=== PATIENT | female | born 1945 | race Caucasian/White ===

== ENCOUNTER 2017-03-29 22:43 | Observation (INO) ==
[2017-03-29 23:13] LABS: Basophils % 0.4 %; Eosinophils # 0.2 K/mcL (0.0-0.6); Eosinophils % 1.3 %; Hematocrit 38.8 % (35.3-44.9); Hemoglobin 12.5 g/dL (11.5-15.4); Immature Granulocytes % 0.4 % (0-4); Lymphocytes # 3.1 K/mcL (0.6-4.6); Lymphocytes % 27.4 %; Mean Corpuscular HGB Conc 32.2 g/dL (31.6-35.5); Mean Corpuscular Hemoglobin 27.4 pg (28.0-33.3); Mean Corpuscular Volume 85.1 fL (83.0-100.0); Mean Platelet Volume 9.7 fL (9.4-12.4); Monocytes % 8.4 %; Neutrophils # 7.1 K/mcL (1.6-8.9); Platelet Count 240 K/mcL (140-400); Red Blood Count 4.56 M/mcL (3.82-4.97); Red Cell Distribution Width 14.7 % (11.5-14.5); Segmented Neutrophils % 62.1 %
[2017-03-29 23:20] LABS: INR 1.2; Prothrombin Time 12.5 Seconds (9.4-12.1)
[2017-03-29 23:22] LABS: Activated Partial Thrombo Time 28.7 Seconds (26.0-36.0)
[2017-03-29 23:28] LABS: BUN/Creatinine Ratio 24 (6-26); Blood Urea Nitrogen 21 mg/dL (7-20); Calcium 9.6 mg/dL (8.6-10.8); Carbon Dioxide 29 mEq/L (19-29); Chloride 106 mEq/L (98-109); Glucose 86 mg/dL (70-99); Osmolality,Calculated 294 (280-300); Potassium 4.6 mEq/L (3.5-4.5); Sodium 141 mEq/L (136-145); eGFR For African Americans > 60 (> 60); eGFR For Non-African Americans > 60 (> 60)
--- NOTE | 2017-03-30 00:24 | Emergency Department Note ---
Disposition Clinical Impression: Chest pain, rule out acute myocardial infarction Disposition: Admitted As Inpatient Condition: Good Time of Disposition: 04:00 Chest Pain HPI - General Chief Complaint: ED Chest Pain Stated Complaint: CP Time Seen by Provider: 03/30/17 00:06 Source: patient Limitations: no limitations Vital Signs Reviewed: Yes Nursing Notes Reviewed: Yes - History of Present Illness HPI Narrative: 71-year-old female presents with concerns of chest pain. Patient states the pain started about 2 hours prior to arrival. She describes it as a pressure in her left chest that radiates to her left shoulder and down her left arm. Patient states that this feels similar to her previous heart attacks. Patient has had multiple stents placed as well as a three-vessel bypass placed. Patient takes aspirin daily but does not take Plavix or other anticoagulant medication. Patient reports associated nausea, shortness of breath but denies diaphoresis or palpitations. Patient denies recent trauma. Severity scale (1-10): 8 - Related Data Home Medications Medication Instructions Recorded Confirmed Alendronate Sodium [Fosamax] 70 mg PO QWEEK 03/30/17 03/30/17 Aspirin [Ecotrin] 325 mg PO DAILY 03/30/17 03/30/17 Atenolol [Tenormin] 25 mg PO DAILY 03/30/17 03/30/17 Atorvastatin [Lipitor] 40 mg PO HS 03/30/17 03/30/17 Citalopram [CeleXA] 40 mg PO DAILY 03/30/17 03/30/17 Diltiazem HCl [Diltiazem ER] 120 mg PO BID 03/30/17 03/30/17 Fenofibrate,Micronized [Lofibra] 200 mg PO DAILY 03/30/17 03/30/17 Furosemide [Lasix] 40 mg PO DAILY 03/30/17 03/30/17 Isosorbide MONOnitrate (24 HR) 30 mg PO DAILY 03/30/17 03/30/17 [Imdur] Levothyroxine [Synthroid] 125 mcg PO DAILY 03/30/17 03/30/17 Methylphenidate HCl [Ritalin] 10 mg PO TID 03/30/17 03/30/17 Nitroglycerin [Nitrostat] 0.4 mg SL PRN PRN 03/30/17 03/30/17 Omeprazole 40 mg PO DAILY 03/30/17 03/30/17 Potassium Chloride [Klor-Con 10] 10 meq PO TID 03/30/17 03/30/17 Ropinirole HCl [Requip] 2 mg PO DAILY 03/30/17 03/30/17 TraZODone 50 mg PO HS 03/30/17 03/30/17 Allergies Allergy/AdvReac Type Severity Reaction Status Date / Time Penicillins Allergy Rash Verified 03/29/17 22:54 adhesive tape AdvReac Blister Verified 03/29/17 22:54 All systems ED: reviewed and negative except as stated. Constitutional: Denies: fever, chills, weakness Cardiovascular: Reports: chest pain, palpitations Chest Pain PMH - Past Medical History Medical history: Reports: coronary artery disease, hyperlipidemia - Social History Smoking Status: Never smoker Alcohol use: Reports: none Drug use: Reports: none Physical Exam General: Alert and in no acute distress Skin: Warm, dry, intact Head: Normocephalic and atraumatic Neck: Supple, trachea midline and no tenderness Cardiovascular: RRR, no murmur, normal perfusion Respiratory: CTAB, no wheezing, cough, or respiratory distress Musculoskeletal: Normal strength, no tenderness, swelling or deformity GI: Soft, nontender, nondistended. Bowel sounds present Neuro: A&O to person, place, time and situation. No focal deficits noted on exam Psychiatric: cooperative and appropriate mood and affect. - General General appearance: alert, in no apparent distress Course Vital Signs Temperature 98.3 F 03/29/17 22:48 Pulse Rate 69 03/29/17 22:48 Respiratory Rate 16 03/29/17 22:48 Blood Pressure 137/73 03/29/17 22:48 O2 Sat by Pulse Oximetry 97 03/29/17 22:48 Temperature 97.9 F 03/30/17 01:19 Pulse Rate 93 03/30/17 01:19 Respiratory Rate 18 03/30/17 01:19 Blood Pressure 115/72 03/30/17 01:19 O2 Sat by Pulse Oximetry 97 03/30/17 01:39 Oxygen Delivery Oxygen Delivery Room Air Chest Pain - MDM Narrative Medical decision making narrative: Patient given nitro paste and aspirin in the emergency department. Patient admitted to the hospitalist for further care and evaluation of chest pain. - Medical Records Medical records reviewed: Yes I reviewed the patient's medical records. - Lab Data Lab results reviewed: Yes I reviewed the patient's lab results. Result diagrams: 03/30/17 04:36 03/30/17 04:36 Lab Results 03/29/17 03/29/17 03/29/17 Range/Units 23:09 23:09 23:09 WBC 11.4 H (4.3-11.1) K/mcL RBC 4.56 (3.82-4.97) M/mcL Hgb 12.5 (11.5-15.4) g/dL Hct 38.8 (35.3-44.9) % MCV 85.1 (83.0-100.0) fL MCH 27.4 L (28.0-33.3) pg MCHC 32.2 (31.6-35.5) g/dL RDW 14.7 H (11.5-14.5) % Plt Count 240 (140-400) K/mcL MPV 9.7 (9.4-12.4) fL Immature Gran % 0.4 (0-4) % Seg Neutrophils % 62.1 % Lymphocytes % 27.4 % Monocytes % 8.4 % Eosinophils % 1.3 % Basophils % 0.4 % Neutrophils # 7.1 (1.6-8.9) K/mcL Lymphocytes # 3.1 (0.6-4.6) K/mcL Monocytes # 1.0 (0.0-1.3) K/mcL Eosinophils # 0.2 (0.0-0.6) K/mcL Basophils # 0.0 (0.0-0.2) K/mcL PT 12.5 H (9.4-12.1) Seconds INR 1.2 APTT 28.7 (26.0-36.0) Seconds Sodium 141 (136-145) mEq/L Potassium 4.6 H (3.5-4.5) mEq/L Chloride 106 (98-109) mEq/L Carbon Dioxide 29 (19-29) mEq/L BUN 21 H (7-20) mg/dL Creatinine 0.88 (0.57-1.11) mg/dL Est GFR ( Amer) > 60 (> 60) Est GFR (Non-Af Amer) > 60 (> 60) BUN/Creatinine Ratio 24 (6-26) Glucose 86 (70-99) mg/dL Calculated Osmolality 294 (280-300) Calcium 9.6 (8.6-10.8) mg/dL Troponin I (0-0.03) ng/mL 03/29/17 Range/Units 23:09 WBC (4.3-11.1) K/mcL RBC (3.82-4.97) M/mcL Hgb (11.5-15.4) g/dL Hct (35.3-44.9) % MCV (83.0-100.0) fL MCH (28.0-33.3) pg MCHC (31.6-35.5) g/dL RDW (11.5-14.5) % Plt Count (140-400) K/mcL MPV (9.4-12.4) fL Immature Gran % (0-4) % Seg Neutrophils % % Lymphocytes % % Monocytes % % Eosinophils % % Basophils % % Neutrophils # (1.6-8.9) K/mcL Lymphocytes # (0.6-4.6) K/mcL Monocytes # (0.0-1.3) K/mcL Eosinophils # (0.0-0.6) K/mcL Basophils # (0.0-0.2) K/mcL PT (9.4-12.1) Seconds INR APTT (26.0-36.0) Seconds Sodium (136-145) mEq/L Potassium (3.5-4.5) mEq/L Chloride (98-109) mEq/L Carbon Dioxide (19-29) mEq/L BUN (7-20) mg/dL Creatinine (0.57-1.11) mg/dL Est GFR ( Amer) (> 60) Est GFR (Non-Af Amer) (> 60) BUN/Creatinine Ratio (6-26) Glucose (70-99) mg/dL Calculated Osmolality (280-300) Calcium (8.6-10.8) mg/dL Troponin I 0.01 (0-0.03) ng/mL - Radiology Data Radiology results reviewed: Yes I reviewed the patient's radiology results. - EKG Data EKG attestation: Yes I reviewed and interpreted this EKG. EKG results narrative: ECG - interpreted by ED physician. Rate 67, normal sinus rhythm, no STEMI, MN, QT intervals, and QRS within normal limits
[2017-03-30] MEDS ORDERED: Aspirin 81 MG TAB.CHEW PO ONE (00:40)
[2017-03-30] MEDS ORDERED: Ondansetron 4 MG/2 ML VIAL IVP PRN (04:21)
[2017-03-30] MEDS ORDERED: *HR* OxyCODONE Immed Rel 5 MG TABLET PO PRN (04:21)
[2017-03-30] MEDS ORDERED: *HR* Metoprolol 5 MG/5 ML VIAL IVP PRN (04:21)
[2017-03-30] MEDS ORDERED: Naloxone 0.4 MG/ML INJ IVP PRN (04:21)
[2017-03-30] MEDS ORDERED: *HR* Morphine 2 MG/ML SYRINGE IVP PRN ×2 (04:21→06:09)
[2017-03-30] MEDS ORDERED: Acetaminophen 325 MG TABLET PO PRN (04:21)
[2017-03-30] MEDS ORDERED: Nitroglycerin 0.4 MG TAB.SUBL SL PRN (04:21)
[2017-03-30] MEDS ORDERED: 0.9 % Sodium Chloride 1,000 ML IVC SCH (04:30)
--- NOTE | 2017-03-30 04:33 | Internal Med History&Physical ---
Date of Encounter: 03/30/17 Time of Encounter: 04:30 Assessment and Plan (1) Chest pain, rule out acute myocardial infarction Current visit: Yes Status: Acute . (2) Chest pain with moderate risk of acute coronary syndrome Current visit: Yes Status: Acute . (3) Acute chest wall pain Current visit: Yes Status: Acute . (4) Non-ST elevation myocardial infarction (NSTEMI) due to mismatch of myocardial oxygen supply and demand Current visit: Yes Status: Acute . (5) CAD (coronary artery disease), [place] coronary artery Current visit: Yes Status: Acute . Qualifiers: [place] vs. transplanted heart: [place] heart Associated angina: with unstable angina Qualified Code(s): I25.110 - Atherosclerotic heart disease of [place] coronary artery with unstable angina pectoris (6) History of PTCA Current visit: Yes Status: Acute . (7) Hx of CABG Current visit: Yes Status: Acute . Internal Medicine - H&P: HPI Chief complaint: Chest Pain Admitted From: Emergency Dept Plans for Post Hospital Care: Home History of present illness: Ms. Hudson is a 71 year old female with history significant for CAD/PTCA- multiple stents/[id number]/AMIs, CHF unspecified, hypertension, dyslipidemia, OA/OP , DDD/DJD-spine/chronic MSK pain, RLS, hypothyroidism, GERD, depression/anxiety , nonsmoker, etc.. She is admitted to [facility] via the emergency department and presents with reports of chest pain. She reports approximately 2 hours prior to arrival she had acute onset of left chest pain that radiated into her left shoulder and down her left arm. She stated this was reminiscent of previous events/heart attacks. History is significant for multiple interventions for coronary artery disease. She acknowledges associated nausea and shortness of breath with the onset of chest pain. Denied diaphoresis palpitations syncopal or presyncopal complaints. Chest pain was described as an 8/10 severity when present. Eventually resolving she utilized nitroglycerin spray +sublingual nitroglycerin tablets 3 with chest pain gradually declining to a 3/10 at time of arrival to ED. Findings in the ED: Vital signs stable. Afebrile. WBC 11.4 hemoglobin 12.5. Platelets 240,000. White blood cell differential normal. RDW 14.7. PT 12.5 INR 1.2. APTT 28.7. Basic metabolic panel normal except potassium 4.6. BUN 21 with creatinine 0.88. Troponin 0.01 and 0.05. Chest x-ray demonstrated no acute or active cardiopulmonary process. Evidence of mild cardiomegaly with post thoracotomy changes. No evidence for CHF pneumonia pneumothorax effusion. EKG demonstrated no acute ischemic changes. Normal sinus rhythm. Preliminary impression suggest acute unstable, angina pectoris at rest in patient with significant history of coronary artery disease and prior interventions. Initial screening studies do not disclosed evidence of end organ injury. However demand ischemia of the myocardium is evident with the gradual troponin elevation. Consistent with type II NSTEMI in this setting pending formal detailed investigations. The patient is at high risk for major acute coronary event and acute clinical decline and morbidity given her advanced age, presenting chief complaints and comorbidities. Workup and treatments will proceed comprehensively. The patient was visited and interviewed and examined. Cumulative laboratory and radiographic data base will be considered and discussed. Pertinent ancillary medical records including ECW and PCI documentation when available was reviewed and considered. Given the patient's presenting concerns, past medical history, clinical findings and symptoms, she is admitted at this time will undergo further evaluation and disposition. Orders were written as per the computerized physician order worker system.......................................................................... .................... Consultative opinions will be sought as clinical circumstances justify. Initial consultative opinion has been requested for cardiology. Pain management needs will be addressed. Laboratory=radiographic data base will be updated as appropriate. Studies include: pt/inr, aptt, ddimer, cpk, UA, cardiac injury panel, BNP, metabolic and hematologic panel, magnesium, phosphorus, ionized calcium, thyroid panel, lipid profile, A1c, C-peptide, CRP, sedimentation rate, blood gas, lactic acid, serologies, etc. Precautions: Aspiration, fall, delirium protocol/surveillance initiated. Orthostatic vital signs. Telemetry with continuous hemodynamic monitoring and pulse oximetry initiated. Empiric antibiotic coverage: pending diagnostics/culture data. Special studies: CT chest, chest x-ray, telemetry, EKG, echocardiogram. Pulmonary toilet: Incentive spirometry. PRN: aerosol bronchodilator, mucolytic, antitussive. Supplemental oxygen. Corticosteroid therapy PRN. CPAP/BiPAP supplemental oxygen delivery PRN. Aerosol Mucomyst therapy PRN. Fluid and electrolyte repletion efforts will proceed. Careful attention to fluid balance and renal recovery will be emphasized. Avoidance of nephrotoxic exposure and adverse drug drug interaction in the setting of impaired renal function will be monitored closely. Acute coronary syndrome/unstable angina pectoris protocol/surveillance initiated. Beta oralia, statin, DALILA inhibitor, aspirin. Nitrates. Morphine. Supplemental oxygen. Intravenous heparin drip (low-dose ACS) protocol was initiated. DVT and PUD prophylaxis initiated: PPI therapy, intermittent pneumatic cuffs/ TEDs. Early ambulation will be encouraged. Immunization updates recommended. Influenza and pneumococcal vaccinations as part of ongoing preventative healthcare recommendations strongly recommended. Smoking cessation counseling briefly addressed. Patient is a nonsmoker. Advanced care directive discussion briefly addressed. Patient does not declare any healthcare restrictions at this time. Cardiovascular risk appraisal and cardiovascular risk reduction efforts will be emphasized. Physical=occupational therapy may be consulted to evaluate patient's functional capacity and progress mobility if circumstances justify. Nutrition/dietary education and supplementary diet options counseling may be considered as circumstances justify. Outpatient medication schedules will be reviewed, confirmed and facilitated as appropriate. Reconciliation of home treatments including adjustments, substitutions and reintroduction into the treatment regimen will address necessary maintenance therapies for chronic pre-existing medical conditions. Plan of care has been reviewed and discussed in detail with the patient. Questions addressed. Hospital course dependent upon clinical findings, treatment response and potential consultative interventions. Patient is at risk for further acute clinical decline due to her advanced age, presenting chief complaints and comorbid conditions. Condition is serious. Prognosis is guarded. CODE STATUS is full. Past Med Surg Social Fam HX - Past Medical History Source: old records reviewed Medical history: arthritis, CHF, coronary artery disease, GERD, hyperlipidemia, hypertension, myocardial infarction, osteoporosis, thyroid disease, other ( Lumbar spondylolisthesis. Spondylosis without myelopathy or radiculopathy, lumbar region. Chronic low back pain syndrome.) Psychiatric history: anxiety, depression, other - Past Surgical History Surgical History: angioplasty/stent, coronary bypass (CABG), other - Social History Smoking Status: Never smoker Smokeless Tobacco Status: No Alcohol use: none Drug use: none - Family History Mother Living Status: Hx Family Cardiac Disorders: Yes (CAD) Father Living Status: Cause of : cerebral hemorrhage Internal Medicine - H&P: Meds Alendronate Sodium [Fosamax] 70 mg PO QWEEK 03/30/17 [History] Aspirin [Ecotrin] 325 mg PO DAILY 03/30/17 [History] Atenolol [Tenormin] 25 mg PO DAILY 03/30/17 [History] Atorvastatin [Lipitor] 40 mg PO HS 03/30/17 [History] Citalopram [CeleXA] 40 mg PO DAILY 03/30/17 [History] Diltiazem HCl [Diltiazem ER] 120 mg PO BID 03/30/17 [History] Fenofibrate,Micronized [Lofibra] 200 mg PO DAILY 03/30/17 [History] Furosemide [Lasix] 40 mg PO DAILY 03/30/17 [History] Isosorbide MONOnitrate (24 HR) [Imdur] 30 mg PO DAILY 03/30/17 [History] Levothyroxine [Synthroid] 125 mcg PO DAILY 03/30/17 [History] Methylphenidate HCl [Ritalin] 10 mg PO TID 03/30/17 [History] Nitroglycerin [Nitrostat] 0.4 mg SL PRN PRN 03/30/17 [History] Omeprazole 40 mg PO DAILY 03/30/17 [History] Potassium Chloride [Klor-Con 10] 10 meq PO TID 03/30/17 [History] Ropinirole HCl [Requip] 2 mg PO DAILY 03/30/17 [History] TraZODone 50 mg PO HS 03/30/17 [History] Allergies Penicillins Allergy (Verified 03/29/17 22:54) Rash adhesive tape Adverse Reaction (Verified 03/29/17 22:54) Blister All Systems PM: A 10-system review of systems was performed and is negative for pertinent findings except as documented above in the HPI. - Constitutional Constitutional: as per HPI, fatigue, malaise, no chills, no fever(s), no night sweats - EENT Eyes: as per HPI, no change in vision, no discharge, no pain, no photophobia Ears: as per HPI, no ear discharge, no ear pain, no tinnitus Nose, mouth and throat: as per HPI, no dysphagia, no nasal discharge, no neck pain, no sore throat - Cardiovascular Cardiovascular ROS IM: as per HPI, chest pain, diaphoresis, dyspnea, other, no lightheadedness, no palpitations, no syncope - Respiratory Respiratory: as per HPI, no cough, no dyspnea, no wheezing, no excessive phlegm production - Gastrointestinal Gastrointestinal: as per HPI, no abdominal pain, no diarrhea, no hematemesis, no hematochezia, no melena, no nausea, no vomiting - Genitourinary Genitourinary: as per HPI, no change in urinary stream, no dysuria, no flank pain, no hematuria - Musculoskeletal Musculoskeletal ROS IM: as per HPI, no numbness, no tingling - Integumentary Integumentary IM: as per HPI, no rash, no unusual bruising - Neurological Neurological ROS: as per HPI, no confusion, no convulsions, no focal weakness, no numbness, no tingling, no tremor(s) - Psychiatric Psychiatric: as per HPI - Endocrine Endocrine IM: as per HPI - Hematologic/Lymphatic Hematologic/Lymphatic: as per HPI, no easy bruising - Allergic/Immunologic Allergic/Immunologic: as per HPI - Constitutional Vitals: Temp Pulse Resp BP Pulse Ox 97.9 F 93 18 115/72 97 03/30/17 01:19 03/30/17 01:19 03/30/17 01:19 03/30/17 01:19 03/30/17 01:39 Vital Signs Temp Pulse Resp BP Pulse Ox 03/30/17 01:39 97 03/30/17 01:19 97.9 F 93 18 115/72 94 03/30/17 00:57 98.4 F 18 128/64 03/30/17 00:38 61 22 129/60 97 03/29/17 23:47 62 20 132/65 97 03/29/17 22:48 98.3 F 69 16 137/73 97 Intake and Output 03/29/17 03/29/17 03/30/17 15:59 23:59 07:59 Other: # Voids 1 Weight 73.936 kg 70.7 kg Patient Weight 03/30/17 23:59 Weight 70.7 kg General appearance: Present: cooperative, mild distress, A&O X 3, pleasant, obese, answers questions appropriately - Head Head exam: Present: atraumatic, normal inspection, normocephalic - Eye Eye exam: Present: EOMI, PERRL, conjuntiva pink, sclera anicteric Pupils: Present: normal accommodation, PERRL - ENT ENT exam: Present: mucous membranes moist, normal oropharynx - Neck Neck exam general surgery: Present: full ROM, supple, trachea midline. Absent: lymphadenopathy, nuchal rigidity - Respiratory Respiratory exam: Present: chest wall tenderness, decreased breath sounds, CTAB. Absent: accessory muscle use, rales, rhonchi, stridor, wheezes - Cardiovascular Cardiovascular exam: Present: distant heart sounds, RRR, +S1, +S2. Absent: diastolic murmur, gallop, rubs, systolic murmur - GI/Abdominal GI/Abdominal exam: Present: normal bowel sounds, soft, no peritoneal signs. Absent: distended, tenderness - Extremities Exam Extremities exam: Present: full ROM, warm, radial pulses palpable and symetrical. Absent: calf tenderness, cyanotic, pedal edema - Neurological Exam Neurological exam: Present: alert, CN II-XII intact, oriented X3, no focal deficits. Absent: pronater drift, facial droop, speech deficit - Psychiatric Psychiatric exam: Present: normal affect, normal mood - Skin Skin exam: Present: dry, intact, warm. Absent: petechiae, rash, urticaria, vesicles Internal Med - H&P Results - Labs CBC & Chem 7: 03/30/17 04:36 03/30/17 04:36 Labs: Short CBC 03/29/17 Range/Units 23:09 WBC 11.4 H (4.3-11.1) K/mcL Hgb 12.5 (11.5-15.4) g/dL Hct 38.8 (35.3-44.9) % Plt Count 240 (140-400) K/mcL Neutrophils # 7.1 (1.6-8.9) K/mcL BMP 03/29/17 Range/Units 23:09 Sodium 141 (136-145) mEq/L Potassium 4.6 H (3.5-4.5) mEq/L Chloride 106 (98-109) mEq/L Carbon Dioxide 29 (19-29) mEq/L BUN 21 H (7-20) mg/dL Creatinine 0.88 (0.57-1.11) mg/dL Glucose 86 (70-99) mg/dL Calcium 9.6 (8.6-10.8) mg/dL Cardiac Enzymes 03/29/17 Range/Units 23:09 Troponin I 0.01 (0-0.03) ng/mL Abnormal lab results WBC 11.4 K/mcL (4.3-11.1) H 03/29/17 23:09 MCH 27.4 pg (28.0-33.3) L 03/29/17 23:09 RDW 14.7 % (11.5-14.5) H 03/29/17 23:09 PT 12.5 Seconds (9.4-12.1) H 03/29/17 23:09 Potassium 4.6 mEq/L (3.5-4.5) H 03/29/17 23:09 BUN 21 mg/dL (7-20) H 03/29/17 23:09 Laboratory Results WBC 11.4 K/mcL (4.3-11.1) H 03/29/17 23:09 RBC 4.56 M/mcL (3.82-4.97) 03/29/17 23:09 Hgb 12.5 g/dL (11.5-15.4) 03/29/17 23:09 Hct 38.8 % (35.3-44.9) 03/29/17 23:09 MCV 85.1 fL (83.0-100.0) 03/29/17 23:09 MCH 27.4 pg (28.0-33.3) L 03/29/17 23:09 MCHC 32.2 g/dL (31.6-35.5) 03/29/17 23:09 RDW 14.7 % (11.5-14.5) H 03/29/17 23:09 Plt Count 240 K/mcL (140-400) 03/29/17 23:09 MPV 9.7 fL (9.4-12.4) 03/29/17 23:09 Immature Gran % 0.4 % (0-4) 03/29/17 23:09 Seg Neutrophils % 62.1 % 03/29/17 23:09 Lymphocytes % 27.4 % 03/29/17 23:09 Monocytes % 8.4 % 03/29/17 23:09 Eosinophils % 1.3 % 03/29/17 23:09 Basophils % 0.4 % 03/29/17 23:09 Neutrophils # 7.1 K/mcL (1.6-8.9) 03/29/17 23:09 Lymphocytes # 3.1 K/mcL (0.6-4.6) 03/29/17 23:09 Monocytes # 1.0 K/mcL (0.0-1.3) 03/29/17 23:09 Eosinophils # 0.2 K/mcL (0.0-0.6) 03/29/17 23:09 Basophils # 0.0 K/mcL (0.0-0.2) 03/29/17 23:09 PT 12.5 Seconds (9.4-12.1) H 03/29/17 23:09 INR 1.2 03/29/17 23:09 APTT 28.7 Seconds (26.0-36.0) 03/29/17 23:09 Sodium 141 mEq/L (136-145) 03/29/17 23:09 Potassium 4.6 mEq/L (3.5-4.5) H 03/29/17 23:09 Chloride 106 mEq/L (98-109) 03/29/17 23:09 Carbon Dioxide 29 mEq/L (19-29) 03/29/17 23:09 BUN 21 mg/dL (7-20) H 03/29/17 23:09 Creatinine 0.88 mg/dL (0.57-1.11) 03/29/17 23:09 Est GFR ( Amer) > 60 (> 60) 03/29/17 23:09 Est GFR (Non-Af Amer) > 60 (> 60) 03/29/17 23:09 BUN/Creatinine Ratio 24 (6-26) 03/29/17 23:09 Glucose 86 mg/dL (70-99) 03/29/17 23:09 Calculated Osmolality 294 (280-300) 03/29/17 23:09 Calcium 9.6 mg/dL (8.6-10.8) 03/29/17 23:09 Troponin I 0.01 ng/mL (0-0.03) 03/29/17 23:09 Impressions Chest X-Ray 03/29/17 22:56 IMPRESSION: No acute process. Mild cardiomegaly and postthoracotomy changes. No evidence of CHF or pneumonia. D/ / Nancy Ashley MD / Nancy Ashley MD Interpreting Provider: Nancy Ashley MD
[2017-03-30] MEDS: Nitroglycerin 1 INCH/GM PACKET TP SCH ×2 (04:54→13:13)
[2017-03-30 05:11] LABS: Basophils % 0.3 %; Eosinophils # 0.2 K/mcL (0.0-0.6); Eosinophils % 1.5 %; Hematocrit 37.2 % (35.3-44.9); Hemoglobin 11.9 g/dL (11.5-15.4); Hemoglobin A1C 5.5 %; Immature Granulocytes % 0.5 % (0-4); Lymphocytes # 3.2 K/mcL (0.6-4.6); Lymphocytes % 27.7 %; Mean Corpuscular Hemoglobin 27.3 pg (28.0-33.3); Mean Corpuscular Volume 85.3 fL (83.0-100.0); Mean Platelet Volume 9.8 fL (9.4-12.4); Monocytes # 0.9 K/mcL (0.0-1.3); Monocytes % 7.9 %; Neutrophils # 7.1 K/mcL (1.6-8.9); Platelet Count 235 K/mcL (140-400); Red Blood Count 4.36 M/mcL (3.82-4.97); Red Cell Distribution Width 14.7 % (11.5-14.5); Segmented Neutrophils % 62.1 %
[2017-03-30 05:28] LABS: Bilirubin,Urine Negative (Negative); Blood,Urine Trace (Negative); Clarity,Urine Clear (Clear); Color,Urine Yellow (Yellow); Glucose,Urine (UA) Normal (Normal); Ketones,Urine Negative (Negative); Leukocyte Esterase,Urine Negative (Negative); Nitrite,Urine Negative (Negative); PH,Urine 5.5 pH Units (5.0-8.0); Protein,Urine Negative (Neg-Trace); Specific Gravity,Urine 1.027 (1.010-1.025); Urobilinogen,Urine Normal (Normal)
[2017-03-30 05:31] LABS: Bacteria,Urine None Seen per hpf (None-Few); Hyaline Casts,Urine None Seen per lpf (None-Few); Squamous Epithelial Cell,Urine Many per lpf (None-Few); WBC,Urine 0-3 per hpf (0-3)
[2017-03-30 05:49] LABS: Alanine Aminotransferase 8 Units/L (0-55); Albumin 3.4 g/dL (3.5-5.0); Alkaline Phosphatase 36 Units/L (38-126); Aspartate Amino Transferase 16 Units/L (5-34); BUN/Creatinine Ratio 22 (6-26); Bilirubin,Total 0.4 mg/dL (0.2-1.2); Blood Urea Nitrogen 19 mg/dL (7-20); Calcium 9.2 mg/dL (8.6-10.8); Carbon Dioxide 25 mEq/L (19-29); Chloride 107 mEq/L (98-109); Chol/HDL Ratio 3.7 (0-4.9); Cholesterol 158 mg/dL (< 200); Globulin 3.3 g/dL (2.4-3.5); Glucose 88 mg/dL (70-99); HDL Cholesterol 43 mg/dL (40-59); LDL Cholesterol,Calculated 97 mg/dL (0-99); Magnesium 1.8 mg/dL (1.6-2.6); Osmolality,Calculated 294 (280-300); Phosphorous 3.6 mg/dL (2.3-4.7); Potassium 4.1 mEq/L (3.5-4.5); Sodium 141 mEq/L (136-145); Thyroid Stimulating Hormone 3.164 mcIU/mL (0.350-4.840); Total Protein 6.7 g/dL (6.0-8.3); Triglycerides 91 mg/dL (< 150); eGFR For African Americans > 60 (> 60); eGFR For Non-African Americans > 60 (> 60)
[2017-03-30] MEDS ORDERED: *HR* Morphine 2 MG/ML SYRINGE IVP STA (06:05)
[2017-03-30] MEDS ORDERED: *HR* Heparin 5,000 UNIT/ML VIAL IVP STA (06:06)
[2017-03-30] MEDS ORDERED: *HR* Heparin 5,000 UNIT/ML VIAL IVP PRN ×2 (06:06)
[2017-03-30] MEDS ORDERED: Heparin 25,000 UNIT/500 ML D5W 25,000 UNIT/500 ML MLS IVC STA (06:06)
[2017-03-30] MEDS ORDERED: Nitroglycerin 0.1 MG PATCH.TD24 TD SCH (07:30)
[2017-03-30] MEDS ORDERED: Aspirin 81 MG TAB.CHEW PO SCH (09:00)
[2017-03-30] MEDS ORDERED: rOPINIRole 1 MG TABLET PO SCH ×2 (09:00→21:00)
--- NOTE | 2017-03-30 09:08 | Cardiology Consult Note ---
<Edil Bell - Last Filed: 03/30/17 11:03> Date of Encounter: 03/30/17 Time of Encounter: 08:58 Assessment and Plan (1) Chest pain Current Visit: Yes Status: Acute Patient is a 71 year old female with history of CAD s/p multiple stents and three vessel CABG, CHF unspecified, htn, and hyperlipidemia who presented to the ED with left sided substernal chest pain at rest with radiation into left shoulder, arm, and back without significant relief with nitroglycerin. Reports continued chest pain overnight despite current interventions. EKG revealed normal sinus rhythm, rate 67 bpm, no st elevations, depressions, or t wave inversions. CXR revealed no acute cardiopulm process. Mild cardiomegaly, post thoracotomy changes, no evidence of chf or pneumonia. Troponin 0.01, 0.05 BNP 175, Cr 0.87 PT 12.5, INR 1.2 Vitals stable. Based on HPI, NSTEMI less likely but cannot fully be ruled out at this time in patient with risk factors including postmenopausal female, hyperlipidemia, and known CAD s/p stents and CABG. The constant nature of her chest pain is not typical of anginal symptoms. GI cocktail trial. Continue trending troponins. Continue Atenolol, aspirin, nitroglycerin as needed for chest pain, and simvastatin. Continue heparin drip. Echo ordered Obtain records from Dr. Mccord, Intake Specialist Qualifiers: Chest pain type: other chest pain Qualified Code(s): R07.89 - Other chest pain; R07.8 - Other chest pain (2) CAD (coronary artery disease), [place] coronary artery Current Visit: Yes Status: Acute Patient with known CAD s/p multiple stents and three vessel CABG in 1996. Continue plan per assessment above. Qualifiers: [place] vs. transplanted heart: [place] heart Associated angina: with unstable angina Qualified Code(s): I25.110 - Atherosclerotic heart disease of [place] coronary artery with unstable angina pectoris (3) Hypertension Current Visit: Yes Status: Acute Bp 127/69, pulse 59. Known history of hypertension. Currently controlled, continue management per Hospitalist. Qualifiers: Hypertension type: essential hypertension Qualified Code(s): I10 - Essential (primary) hypertension (4) Hyperlipidemia Current Visit: Yes Status: Acute Known history of hyperlipidemia. Triglycerides 91, Cholesterol 158, LDL 97, VLDL 18, HDL 43 Continue simvastatin. Qualifiers: Hyperlipidemia type: unspecified Qualified Code(s): E78.5 - Hyperlipidemia , unspecified (5) Hx of CABG Current Visit: Yes Status: Acute . Discussion w patient/family: The assessment and plan as outlined above was discussed with the patient and/or family members who expressed understanding and agreement. All questions were answered. Thank you for involving us in the care of your patient. Please call with any questions. History of Present Illness Consult date: 03/30/17 Requesting physician: Rakesh Rhoades Consult reason: Chest pain, significant cardiac hx Chief complaint: Chest pain History of present illness: Ms. Hudson is a 71 year old female with history of CAD s/p multiple stents and three vessel CABG in 1996, CHF unspecified, hypertension, hyperlipidemia, and gerd who presented to the ED with complaint of left sided substernal chest pain and pressure that started suddenly at rest around 22:00pm. She reported radiation of pain to her left shoulder, left arm, and to her upper back. Patient took 3 sublingual nitroglycerin, nitroglycerin spray, and 3 baby aspirin prior to arrival without significant relief of pain. Patient reports associated nausea and mild shortness of breath. Patient was given nitro paste and aspirin in the ED. Patient reports pain is 3/10 severity currently and has been constant throughout the night. Patient reports she has has not had any Cardiac workup recently (>5 years) and is a patient of Dr. Mccord, Cardiology in [place]. Patient denies fevers, chills, sweats, changes in vision or hearing, headaches, lightheadedness, dizzinesss, abdominal pain, changes in bowels or bladder, weakness, or loss of sensation. EKG revealed normal sinus rhythm with rate of 67, no st elevation, depressions, or t wave inversions. No comparison. CXR revealed no acute cardiopulm process. Mild cardiomegaly and post thoracotomy changes, no evidence of chf or pneumonia. WBC mildly elevated at 11.4 (unknown baseline). Potassium mildly elevated at 4.6. Troponin 0.01, 0.05. BNP 175, Cr 0.87. PT 12.5, INR 1.2. Patient was admitted for chest pain rule out. Cardiology was consulted for Chest pain and elevating troponin with significant cardiac history. Past Med Surg Social Fam HX - Past Medical History Medical history: arthritis, CHF, coronary artery disease, GERD, hyperlipidemia, hypertension, myocardial infarction, osteoporosis, thyroid disease, other ( Lumbar spondylolisthesis. Spondylosis without myelopathy or radiculopathy, lumbar region. Chronic low back pain syndrome.) Psychiatric history: anxiety, depression, other - Past Surgical History Surgical History: angioplasty/stent, coronary bypass (CABG), other - Social History Smoking Status: Never smoker Smokeless Tobacco Status: No Alcohol use: none Drug use: none Occupational status: retired Current living situation: Home - Independent Activity Level: Independent ambulation Recent Out of Country Travel Within the Last 8 Weeks: No Exposure or Possible Exposure to Illness During Travel: No - Family History Mother Living Status: Hx Family Cardiac Disorders: Yes (CAD) Father Living Status: Cause of : cerebral hemorrhage Medications and Allergies Aspirin [Ecotrin] 325 mg PO DAILY 03/30/17 [History] Atenolol [Tenormin] 25 mg PO DAILY 03/30/17 [History] Atorvastatin [Lipitor] 40 mg PO HS 03/30/17 [History] Citalopram [CeleXA] 40 mg PO DAILY 03/30/17 [History] Diltiazem HCl 120 mg PO TID 03/30/17 [History] Fenofibrate,Micronized [Lofibra] 200 mg PO DAILY 03/30/17 [History] Furosemide [Lasix] 40 mg PO DAILY 03/30/17 [History] Isosorbide MONOnitrate (24 HR) [Imdur] 30 mg PO DAILY 03/30/17 [History] Levothyroxine [Synthroid] 125 mcg PO DAILY 03/30/17 [History] Methylphenidate HCl [Ritalin] 10 mg PO TID 03/30/17 [History] Nitroglycerin [Nitrostat] 0.4 mg SL PRN PRN 03/30/17 [History] Omeprazole 40 mg PO DAILY 03/30/17 [History] Potassium Chloride [Klor-Con 10] 10 meq PO TID 03/30/17 [History] Ropinirole HCl [Requip] 2 mg PO DAILY 03/30/17 [History] TraZODone 100 mg PO HS 03/30/17 [History] Allergies Penicillins Allergy (Verified 03/29/17 22:54) Rash adhesive tape Adverse Reaction (Verified 03/29/17 22:54) Blister All Systems Review: A 10-system review of systems was performed and is negative for pertinent findings except as documented above in the HPI. - Constitutional Constitutional: no chills, no fever(s), no headache(s), no night sweats, no weakness - EENT Eyes: no blurred vision, no loss of vision Nose, mouth and throat: no dysphagia - Cardiovascular Cardiovascular: as per HPI, chest pain at rest, dyspnea at rest, radiating jaw, neck or arm pain, no diaphoresis, no irregular heart rhythm, no leg edema, no lightheadedness, no palpitations - Respiratory Respiratory: dyspnea, no cough - Gastrointestinal Gastrointestinal: no abdominal pain, no constipation, no diarrhea, no nausea - Genitourinary Genitourinary: no dysuria - Neurological Neurological: no abnormal speech, no dizziness, no focal weakness, no loss of vision, no memory loss, no numbness, no syncope, no tingling Physical Examination Vital Signs, Last 4 Hours Temp Pulse Resp BP Pulse Ox 03/30/17 07:22 98.0 F 59 17 127/69 98 General: Conversant, No Apparent Distress HEENT: Atraumatic, Normocephaly, Mucus Membranes Moist Neck: No JVD, Normal carotid pulses Cardiac: Reg Rate and Rhythm, Other (grade 3 systolic murmur at right upper sternal border) Lungs: Normal Breath Sounds, No Wheeze, Rales, Rhonchi Neuro: Alert and responsive, No focal deficits noted Abdomen: Soft Skin: No rashes noted on visualized skin Musculoskeletal: No Chest Wall Tenderness Extremities: No Clubbing, No Cyanosis, No Edema, Normal Pulses Results 03/30/17 04:36 03/30/17 04:36 Lab Results 03/30/17 03/30/17 03/30/17 04:36 04:36 04:36 WBC 11.5 H Hgb 11.9 Hct 37.2 Plt Count 235 Sodium 141 Potassium 4.1 Chloride 107 Carbon Dioxide 25 BUN 19 Creatinine 0.87 Glucose 88 Calcium 9.2 Magnesium 1.8 Total Bilirubin 0.4 AST 16 ALT 8 Alkaline Phosphatase 36 L Troponin I B-Natriuretic Peptide 175 H TSH 3.164 03/30/17 04:36 WBC Hgb Hct Plt Count Sodium Potassium Chloride Carbon Dioxide BUN Creatinine Glucose Calcium Magnesium Total Bilirubin AST ALT Alkaline Phosphatase Troponin I 0.05 H* B-Natriuretic Peptide TSH Consult Discharge Plan - Plan Referrals: Manjit Chandra [Non-Partnered Physician] - 04/05/17 12:45 pm <MikemikalaMicaela - Last Filed: 03/30/17 13:19> Date of Encounter: 03/30/17 Assessment and Plan Discussion w patient/family: The assessment and plan as outlined above was discussed with the patient and/or family members who expressed understanding and agreement. All questions were answered. Thank you for involving us in the care of your patient. Please call with any questions. History of Present Illness History of present illness: Ms. Hudosn is a 71 year old female All Systems Review: A 10-system review of systems was performed and is negative for pertinent findings except as documented above in the HPI. Physical Examination Vital Signs, Last 4 Hours Temp Pulse Resp BP Pulse Ox 03/30/17 11:15 98.0 F 77 18 143/77 96 03/30/17 09:47 98 Results 03/30/17 04:36 03/30/17 04:36 Lab Results 03/30/17 03/30/17 03/30/17 04:36 04:36 04:36 WBC 11.5 H Hgb 11.9 Hct 37.2 Plt Count 235 Sodium 141 Potassium 4.1 Chloride 107 Carbon Dioxide 25 BUN 19 Creatinine 0.87 Glucose 88 Calcium 9.2 Magnesium 1.8 Total Bilirubin 0.4 AST 16 ALT 8 Alkaline Phosphatase 36 L Troponin I B-Natriuretic Peptide 175 H TSH 3.164 03/30/17 03/30/17 04:36 10:22 WBC Hgb Hct Plt Count Sodium Potassium Chloride Carbon Dioxide BUN Creatinine Glucose Calcium Magnesium Total Bilirubin AST ALT Alkaline Phosphatase Troponin I 0.05 H* 0.10 H* B-Natriuretic Peptide TSH - Attending Attestation I examined this patient and my medical decision-making was reviewed with the METAL WEIGHER/PA/Advanced Practice Nurse/Resident Physician. I agree with the documented findings, disposition and treatment plan. Ms. Hudson presents with atypical chest pain that has been waxing and waning since 9pm last evening. She feels as if it was similar to when she had her open heart surgery in 1996. Her last PCI was greater than 5 years ago. She admits to occasional exertional angina. Since admission, her troponins have increased and her symptoms have not resolved. We attempted a GI cocktail to determine if symptoms would improve and they haven't. Because of her history, symptoms and troponin in the diagnosis of NSTEMI we have recommended proceeding with C. The R/B/A of the procedure were discussed with the patient who expressed understanding and verbalized agreement to proceed. She denies history of bleeding events. She has no upcoming elective procedures.
[2017-03-30] MEDS: Diltiazem SR (12hr) 60 MG CAPSULE PO SCH ×2 (10:16→20:20)
[2017-03-30] MEDS: Isosorbide MONOnitrate (24 HR) 30 MG TAB.ER.24H PO SCH (10:16)
[2017-03-30] MEDS: FENOFIBRATE MICRONIZED 200 MG PO SCH (10:16)
[2017-03-30] MEDS: Furosemide 40 MG TABLET PO SCH (10:16)
[2017-03-30] MEDS: Aspirin Enteric Coated 325 MG Tablet PO SCH (10:16)
--- NOTE | 2017-03-30 10:44 | Electrocardiograph Report ---
[place] [address] Test Date: 2017-03-30 Pat Name: Leela Hudson Department: 113 Room: 3B24 Gender: F Die Designer: : 1945 Requested By: Rakesh Rhoades Order Number: [id number] Reading MD: Karly Brewer Measurements Intervals [place] Rate: 61 P: 51 NV: 147 QRS: 10 QRSD: 85 T: 25 QT: 476 QTc: 478 Interpretive Statements SINUS RHYTHM MODERATE VOLTAGE CRITERIA FOR LVH, CONSIDER NORMAL VARIANT PROLONGED QT INTERVAL Electronically Signed On 03-30-2017 10:42:55 EDT by Karly Brewer
--- NOTE | 2017-03-30 10:46 | Electrocardiograph Report ---
[address] [address] Test Date: 2017-03-29 Pat Name: Leela Hudson Department: 105 Room: 3B24 Gender: F Director Of Accounting: LONG : 1945 Requested By: Ariel Nice Order Number: [id number] Reading MD: Karly Brewer Measurements Intervals [place] Rate: 67 P: 57 AL: 149 QRS: 27 QRSD: 85 T: 41 QT: 416 QTc: 432 Interpretive Statements SINUS RHYTHM Electronically Signed On 03-30-2017 10:44:43 EDT by Karly Brewer
[2017-03-30] MEDS ORDERED: GI Cocktail 40 ML EACH PO ONE (11:03)
[2017-03-30] MEDS ORDERED: *HR* Bivalirudin 250 MG VIAL IVC ONE (13:05)
[2017-03-30] MEDS ORDERED: *HR* Midazolam HCl 2 MG/2 ML VIAL ONE (13:16)
[2017-03-30] MEDS ORDERED: *HR* FentaNYL (PF) 100 MCG/2 ML VIAL ONE (13:16)
--- NOTE | 2017-03-30 13:17 | Pre-Sedation Evaluation ---
Pre-sedation evaluation - Pre-sedation checklist Date of procedure: 03/30/17 Procedure: Left Heart Cath Recent Vitals: Last Vital Signs Temp 98.0 F 03/30/17 11:15 Pulse 77 03/30/17 11:15 Resp 18 03/30/17 11:15 BP 143/77 03/30/17 11:15 Pulse Ox 96 03/30/17 11:15 H&P (including ROS) documented in medical record: Yes Previous reaction to sedatives/anesthetics: No Dietary Status: NPO after Midnight Airway Assessment: Patient can open mouth completely, TMJ function normal, Micrognathia (under-bite, receding chin) absent, Neck with adequate range of motion Dentition: No loose teeth or bridges Possible difficult airway: No ASA Classification *see protocol: CLASS II-Mild systemic disease Plan of Care: Pt appropriate candidate for procedure/moderate/conscious sedation , Risks/benefits of procedure/sedation discussed w/ patient/family
--- NOTE | 2017-03-30 13:25 | Event Note ---
Date of Encounter: 03/30/17 Time of Encounter: 09:30 Patient seen and examined. On examination, patient sitting upright in bed falling asleep. Patient saying she is very tired stating that she has not been to bed yet. Chest x-ray negative. Urinalysis negative. Troponin is trending up with peak at 0.1. Continue heparin drip. Cardiology on board, plans for left heart catheter later today. Echocardiogram pending. Patient currently denies chest pain. She does endorse mild shortness of breath. She is currently on 2 L per nasal cannula continuously, not on oxygen at home. Her other complaint is that her restless legs are acting up as she states that she did not get her Requip last night. Awaiting left heart catheter. ITS Impressions Chest X-Ray 03/29/17 22:56 IMPRESSION: No acute process. Mild cardiomegaly and postthoracotomy changes. No evidence of CHF or pneumonia. D/ / 03/30/2017 06:30:55 Nancy Ashley MD / [facility] Interpreting Provider: Nancy Ashley MD
[2017-03-30] MEDS ORDERED: 0.9 % Sodium Chloride 2,000 ML ONE (14:01)
[2017-03-30] MEDS ORDERED: Nitroglycerin 1,000 MCG/10 ML VIAL IV ONE (14:02)
[2017-03-30] MEDS ORDERED: Heparin 1,000 UNITS/500 mL NS 500 ML ONE (14:02)
[2017-03-30] MEDS ORDERED: *HR* Heparin 10,000 UNIT/10 ML VIAL ONE (14:02)
--- NOTE | 2017-03-30 14:14 | Invasive Diagnostic Lab Proc ---
Name: Leela Hudson Date of Study: 03/30/2017 Date: 1945 Ht: 61.8in Medical Record#: [id number] Age: 71 Wt: 155.87lb Gender: Female BSA: 1.72 Order #: [id number] BMI: 28.68 Physicians Procedure Physician: Karly Brewer MD, [facility] Referring MD: Referring MD: Staff Name Position Time In Dipika Meza RT (R) Scrub 01:12 PM Siri Rocha RN Pile Trimmer 01:12 PM Marge Gaona RN Monitor 01:12 PM Indications Indication Non-Stemi Procedures Performed Procedure L HRT ART/GRFT ANGIO Pre-Procedure Checklist Informed consent is complete signed and on chart. H\\T\\P is on chart. ID band is on and ID verified with patient. Patient NPO for procedure The procedure was described for the patient and questions were answered. ECG is on chart. Plan of Care Patient will tolerate the procedure without complications. Adequate level of comfort will be maintained. Hemodynamics will remain stable Patient will recover from procedure without complications. Respiratory function will be maintained. Cardiac rhythm will remain stable. Patient temperature will be maintained. Patient and/or family have verbalized understanding of the procedure. Patient Education Chief Complaint/Reason for Test: Cardiac Cath Developmental Category: Geriatric (65+ years) Developmentally Appropriate for Age: Yes Learning Barriers: None Education Needs: Procedure Education Method: Verbal Information Taught: Cardiac Cath Educational Evaluation: Able to repeat information Intravenous Access Time IV Size Location DC'd Fluid/Drip Rate Units RN 18g 1 12/02" Patent On Arrival Lt Arm 0.9NaCl 25 ml/hr Allergies Penicillins adhesive tape Vital Signs Time BP (mmHg) HR (bpm) O2 Sat. RR (bpm) LOC 01:25 PM / % 5 = Fully awake and oriented or at pre-proc level 01:26 PM / % 5 = Fully awake and oriented or at pre-proc level 01:18 PM 222 / 89 82 99 % 16 01:21 PM 200 / 80 69 96 % 17 01:25 PM 167 / 82 61 97 % 18 01:27 PM 188 / 72 62 98 % 20 01:32 PM 175 / 74 58 98 % 12 01:37 PM 192 / 80 67 98 % 18 5 = Fully awake and oriented or at pre-proc level 01:42 PM 175 / 71 59 98 % 17 01:47 PM 185 / 75 59 98 % 16 5 = Fully awake and oriented or at pre-proc level 01:52 PM 182 / 91 57 99 % 20 Procedural Medications Time Medication Dose Units Method Given By 01:16 PM Oxygen 2 L/min nasal cannula Siri Rocha RN 01:19 PM Versed 2 mg Intravenous Siri Rocha RN 01:19 PM Fentanyl 50 mcg Intravenous Siri Rocha RN 01:27 PM Lidocaine 2% 19 ml Subcutaneous Karly Brewer MD, [facility] ASA Classification: CLASS II- Mild systemic disease (i.e. well-controlled diabetes, hypertension, asthma, cigarette smoking) Denisse Score Preprocedure Postprocedure Activity 2- Moves 4 extremities sustained head lift Activity Circulation 2- SBP +/= 20 points of pre-anesthetic level Circulation Consciousness 2- Awake and alert oriented x 3 Consciousness O2 Saturation 2- Able to maintain O2 satruation of 92% on room air O2 Saturation Respiratory 2- Able to deep breathe and cough well Respiratory Total Score 10 Total Score Contrast Agent: Isovue Diagnostic Contrast: 79 ml Total Contrast: 79 ml Fluoro Dose: 316 mGy Procedure Log Time Note Enter By 01:12 PM Pt arrived to laborer cutting tool 2 at 13:12 scoates 01:12 PM Dipika Meza (R) Position: Scrub Time in: 13:12 scoates 01:12 PM Siri Rocha RN Position: Pile Trimmer Time in: 13:12 scoates 01:12 PM Marge Gaona RN Position: Monitor Time in: 13:12 scoates 01:12 PM Patient charges- Angio tray pack, Navilyst 3mm J, Pulse Oximetry and ACIST tubing and transducer scoates 01:12 PM Case Delayed No scoates 01:12 PM Hair removed from procedure site in procedure lab using clippers. Bilateral groin prepped with Chloraprep by Dipika Meza (R), safety strap applied then patient was draped. Skin intact. scoates 01:12 PM Physician arrived 13:12 scoates 01:12 PM ASA Class CLASS II- Mild systemic disease (i.e. well-controlled diabetes, hypertension, asthma, cigarette smoking) scoates 01:12 PM Meet and greet completed scoates 01:12 PM Sign in performed according to hospital policy. scoates 01:12 PM Procedure start 13:12 scoates 01:16 PM Vitals capture started with the following parameters, Patient=Adult, Interval=5 min, Initial Yaiupgxz=751 mmHg, Deflation Rate=5 mmHg, Cuff placed on Left Arm 01:16 PM CathStat 01:17 PM Time: 13:16 Oxygen on at 2 L/min per nasal cannula by Siri Rocha RN ejohnson 01:18 PM HR=82 bpm, EYSD=984/89 mmhg, SpO2=99.0 %, Resp=16 B/min, Comment=SR 01:19 PM Time: 13:19 Versed 2 mg Intravenous Given by Siri Rocha RN 01:19 PM Time: 13:19 Fentanyl 50 mcg Intravenous Given by Siri Rocha RNohsheri 01:20 PM NIBP STAT measurement started. 01:21 PM HR=69 bpm, YHWF=296/80 mmhg, SpO2=96.0 %, Resp=17 B/min, Comment=SR 01:24 PM NIBP STAT measurement started. 01:24 PM Pressure channel 1 zeroed. 01:25 PM HR=61 bpm, LZTS=371/82 mmhg, SpO2=97.0 %, Comment=SR 01:25 PM Time out performed according to hospital policy ejohnson :25 PM Time: 13:25 Patient comfortable and pain free: Yes ejohnson :26 PM Time: 13:25LOC: 5 = Fully awake and oriented or at pre-proc level ejohnson : PM Time: 13:27 19 ml Lidocaine 2% to right groin Subcutaneous Given by Karly Brewer MD, [facility] ejohnson :27 PM Access obtained by percutaneous puncture. 5Fr 10cm Terumo [place] sheath placed in right Femoral artery. [id number] ejohnson 01:27 PM HR=62 bpm, YUJV=103/72 mmhg, SpO2=98.0 %, Comment=SR : PM Recorded ECG: HR=62 Condition=Condition 1 01:28 PM 5Fr FL 4 catheter inserted over the wire [facility] ejohnson :28 PM LCA angiography performed in multiple views. ejohnson :28 PM Recorded Pressure: Ao, HR=61, Condition=Condition 1 (Aorta) Ao 152/70/105 01:29 PM Catheter removed ejohnson 01:30 PM 5Fr FR 4 catheter inserted over the wire DNC ejohnson 01:32 PM SVG occluded angio performed in AP ejohnson 01:32 PM HR=58 bpm, EYNT=536/74 mmhg, SpO2=98.0 %, Resp=12 B/min, Comment=SR 01:33 PM Catheter removed ejohnson 01:33 PM 5Fr 3DRC catheter inserted over the wire [id number] ejohnson 01:34 PM Recorded Pressure: Ao, HR=58, Condition=Condition 1 (Aorta) Ao 137/84/105 01:34 PM RCA angiography performed in multiple views. ejohnson 01:35 PM Coronary Dominance: right ejohnson 01:36 PM Recorded Pressure: Ao, HR=63, Condition=Condition 1 (Aorta) Ao 150/70/106 01:37 PM HR=67 bpm, IVQW=275/80 mmhg, SpO2=98.0 %, Comment=SR 01:37 PM Catheter removed ejohnson 01:37 PM 5Fr IM catheter inserted over the wire [id number] ejohnson 01:39 PM Left MARLENE to the LAD angio performed in multiple views. ejohnson 01:40 PM Recorded Pressure: Ao, HR=68, Condition=Condition 1 (Aorta) Ao 146/79/109 01:40 PM Catheter removed ejohnson 01:40 PM 5Fr Pigtail catheter inserted over the wire DNC ejohnson 01:41 PM Time: 13:26LOC: 5 = Fully awake and oriented or at pre-proc level ejohnson 01:41 PM Time: 13:25 Patient comfortable and pain free: Yes ejohnson 01:41 PM Catheter selectively placed in left ventricle ejohnson 01:41 PM Bolus angiogram of left Ventricle complete: 8 ml/sec for a total of 24 mls ejohnson 01:41 PM Pressure channel 1 zeroed. 01:41 PM Recorded Pressure: LV, HR=59, Condition=Condition 1 (Left Ventricle) LV 142/12/14 01:42 PM Recorded Pressure: LV, Ao, HR=63, Condition=Condition 1 (Left Ventricle) LV 126/22/22, (Aorta) Ao 128/62/94 01:42 PM HR=59 bpm, XIJP=667/71 mmhg, SpO2=98.0 %, Comment=SR 01:44 PM Bolus angiogram of right Femoral complete: 2 ml/sec for a total of 4 mls ejohnson 01:44 PM Procedure completed at 13:44 ejohnson 01:45 PM Sign out completed: Radiation Dose 315.63 mGy Fluoro Time: 6.0 Isovue 370 - 200ml contrast 79 ml given by Karly Brewer MD, [facility]. Complications: NoneCardiac Rehab Consult needed: NoConfirmed administered medications: Yes ejohnson 01:45 PM Isovue 370 - 200ml,1 Bottle(s) used. ejohnson 01:46 PM Arterial sheath pulled, Mynx closure device used and was Successful [id number] S/N, pressure held for 2 minutes ejohnson 01:46 PM Post ECG NSR ejohnson 01:46 PM Post Blood Pressure 175/71 ejohnson 01:46 PM 13:46 Post Pulses Bilateral DP \\T\\ PT 1+ ejohnson 01:46 PM Information taught Cardiac Cath and Mynx ejohnson 01:46 PM Education needs Plan of Care and Responsibilities of Patient in Care ejohnson 01:46 PM Learning barriers :None ejohnson 01:46 PM Education Methods Verbal ejohnson 01:46 PM Education evaluation Able to repeat information ejohnson 01:47 PM HR=59 bpm, SYIY=396/75 mmhg, SpO2=98.0 %, Comment=SR 01:48 PM Site status No bleeding/hematoma - Rt Groin as reported by Dipika Meza RT (R) at 13:48 ejohnson 01:48 PM Opsite applied ejohnson 01:48 PM Plavix, Effient or Brilinta given No ejohnson 01:52 PM HR=57 bpm, EPFC=681/91 mmhg, SpO2=99.0 %, Resp=20 B/min, Comment=SR 01:53 PM Family placed in consult room. ejohnson 01:53 PM Lesion found in Proximal LAD. Pre Stenosis: 100 Pre WILLARD Flow: 0: No Flow/No perfusion ejohnson 01:53 PM Lesion found in 1st Diagonal. Pre Stenosis: 100 Pre WILLARD Flow: 0: No Flow/No perfusion ejohnson 01:54 PM Lesion found in Proximal Circumflex. Pre Stenosis: 15 Pre WILLARD Flow: 3: Complete and Brisk Flow/Perfusion ejohnson 01:54 PM Lesion found in Proximal RCA. Pre Stenosis: 30 Pre WILLARD Flow: 3: Complete and Brisk Flow/Perfusion ejohnson 01:54 PM Proximal Left Anterior Descending Coronary Artery with 100% stenosis. ejohnson 01:54 PM Mid/Distal Left Anterior Descending Coronary Artery and diagonal branches with 100% stenosis. ejohnson 01:55 PM Circumflex, Obtuse Marginal, Left Posterior Descending, and Left Posterolateral Coronary Arteries with 15 % stenosis. ejohnson 01:55 PM Lesion found in Ramus. Pre Stenosis: 100 Pre WILLARD Flow: 0: No Flow/No perfusion ejohnson 01:55 PM Ramus with 100% stenosis. ejohnson 01:56 PM Right Coronary, Right Posterior Descending Arteries with Right Posterolateral and Acute Marginal branches with 30 % stenosis. ejohnson 01:59 PM Delay to floor No ejohnson 01:59 PM Patient out of room: 13:59 ejohnson 01:59 PM Report given to Nicki DAVIES Pt taken to 3B Room #24. 13:59 ejohnson Complications Complication None Hemodynamics Pressures Site Systolic/A Wave Diastolic/V Wave Mean AO 152 70 105 AO 137 84 105 AO 150 70 106 AO 146 79 109 LV 142 12 14 LV 126 22 22 AO 128 62 94 Post Procedure Information Blood Pressure: 175/71 mmHg Rhythm: NSR Post procedural instructions were given Closure Device Time Device Success/Fail 03/30/2017 1:46:00 PM Mechanical Compression Successful Site Checks Time Location Status Staff Sheath In? Note 01:48 PM Rt Groin No bleeding/hematoma Dipika Meza RT (R) Pulses Time Site Pre-Procedure Post-Procedure Note 1:46:00 PM Bilateral DP \\T\\ PT 1+ 03/30/2017 1:00:00 PM Bilateral DP \\T\\ PT 1+ Updated by Marge Gaona RN on 03/30/2017 2:07:36 PM Marge Gaona RN electronically signed on 03/30/2017 2:09:00 PM with status of Final
--- NOTE | 2017-03-30 15:29 | Invasive Diagnostic Lab ---
Name: Leela Hudson Date of Study: 03/30/2017 Date: 1945 Ht: 157.0 cm /61.8 in Medical Record#: [id number] Age: 71 Wt: 70.7 kg / 155.87 lb Account/Order#: [id number] Gender: Female BSA: 1.72 Order #: [id number] Fluoro Dose: 316 mGy BMI: 28.68 Procedure Physician: Karly Brewer MD, [facility] Referring MD: Referring MD: Procedures Performed: LEFT HEART CATH W/ GRAFTS Indications: Non-Stemi Impressions: Double vessel coronary artery disease. The left ventricle is normal and has normal contractility EF 65% S/P CABG 1 of 2 patent bypass grafts. Previously stented ostial/proximal Cx widely patent. Recommendations: Optimal medical therapy of patient's disease. Aggressive risk factor modification. History/Risk Factors: GERD Arthritis Hypertension Dyslipidemia Prior [place] Procedure Access obtained in the right Femoral artery by percutaneous puncture Complications: None Contrast: Isovue 79ml Closure Device: Mechanical Compression Hemodynamics: Pressures Site Systolic/ A Wave Diastolic/ V Wave End Diastolic/ Mean HR AO 152 70 105 61 AO 137 84 105 58 AO 150 70 106 63 AO 146 79 109 68 LV 142 12 14 59 LV 126 22 22 62 AO 128 62 94 67 LV Ventriculography Ejection Method: LV Gram Ejection Fraction: 65% Wall Motion: COE Anterobasal Normal Anterolateral Normal Apical: Normal Inferoapical Normal Inferobasal Normal Coronary Dominance: right Lesion Findings/Interventions * Left Main Coronary Artery The LMCA is angiographically free of disease. * Left Anterior Descending There is a 100% stenosis in the Proximal LAD, ostial. The lesion has a WILLARD flow of 0. There is a 100% stenosis in the 1st Diagonal. The lesion has a WILLARD flow of 0 and has collaterals which feed from left to left. Mid/distal LAD and diag 1 fill via patent TRACY graft. * Circumflex The Ostial/Proximal Circumflex has 15% in- stent stenosis. * Ramus There is a 100% stenosis in the Ramus. The lesion has a WILLARD flow of 0. * Right Coronary Artery There is a 30% stenosis in the Proximal RCA. The lesion has a WILLARD flow of 3. Additional Findings: Grafts * The left internal mammary graft to the Mid LAD is patent. WILLARD flow is 3. * The previously stented saphenous vein graft to the Ramus is occluded. Updated by Marge Gaona RN on 03/30/2017 2:05:36 PM Karly Brewer MD, [facility] electronically signed on 03/30/2017 3:23:33 PM with status of Final
[2017-03-30] MEDS ORDERED: traZODone 50 MG TABLET PO SCH (21:00)
[2017-03-31 05:26] LABS: Basophils % 0.5 %; Eosinophils # 0.2 K/mcL (0.0-0.6); Hematocrit 38.2 % (35.3-44.9); Hemoglobin 12.1 g/dL (11.5-15.4); Immature Granulocytes % 0.4 % (0-4); Lymphocytes # 2.2 K/mcL (0.6-4.6); Lymphocytes % 26.4 %; Mean Corpuscular HGB Conc 31.7 g/dL (31.6-35.5); Mean Corpuscular Hemoglobin 26.9 pg (28.0-33.3); Mean Corpuscular Volume 85.1 fL (83.0-100.0); Mean Platelet Volume 9.8 fL (9.4-12.4); Monocytes # 0.7 K/mcL (0.0-1.3); Monocytes % 8.5 %; Neutrophils # 5.1 K/mcL (1.6-8.9); Platelet Count 212 K/mcL (140-400); Red Blood Count 4.49 M/mcL (3.82-4.97); Red Cell Distribution Width 14.7 % (11.5-14.5); Segmented Neutrophils % 62.2 %
[2017-03-31 05:27] LABS: INR 1.2; Prothrombin Time 13.1 Seconds (9.4-12.1)
[2017-03-31 05:30] LABS: Activated Partial Thrombo Time 27.1 Seconds (26.0-36.0)
[2017-03-31 05:50] LABS: BUN/Creatinine Ratio 20 (6-26); Blood Urea Nitrogen 16 mg/dL (7-20); Calcium 8.7 mg/dL (8.6-10.8); Carbon Dioxide 28 mEq/L (19-29); Chloride 107 mEq/L (98-109); Glucose 95 mg/dL (70-99); Osmolality,Calculated 293 (280-300); Potassium 3.6 mEq/L (3.5-4.5); Sodium 141 mEq/L (136-145); eGFR For African Americans > 60 (> 60); eGFR For Non-African Americans > 60 (> 60)
[2017-03-31] MEDS: Nitroglycerin 1 INCH/GM PACKET TP SCH (06:14)
[2017-03-31 06:44] VITALS: BP 131/60
--- NOTE | 2017-03-31 08:15 | Cardiology Progress Note ---
<Edil Bell - Last Filed: 03/31/17 11:24> Date of Encounter: 03/31/17 Time of Encounter: 08:11 Assessment and Plan (1) NSTEMI (non-ST elevated myocardial infarction) Status: Acute Patient is a 71 year old female with history of CAD s/p multiple stents and three vessel CABG, CHF unspecified, htn, and hyperlipidemia who presented to the ED with left sided substernal chest pain at rest with radiation into left shoulder, arm, and back without significant relief with nitroglycerin. Reports continued chest pain overnight despite current interventions. EKG revealed normal sinus rhythm, rate 67 bpm, no st elevations, depressions, or t wave inversions. CXR revealed no acute cardiopulm process. Mild cardiomegaly, post thoracotomy changes, no evidence of chf or pneumonia. Troponin 0.01, 0.05, 0.10 BNP 175, Cr 0.87 PT 12.5, INR 1.2 Vitals stable overnight, bp 131/60, pulse 64. Yesterday patient failed to have relief of symptoms after trial of GI cocktail and troponin returned elevated at 0.10. Patient underwent LHC. LHC revealed double vessel CAD, LV normal, EF 65%, s/p CABG 1 of 2 patent bypass grafts, and previously stented ostial/proximal Cx widely patent. Echo 03/30/17 completed, pending results. Last echo completed 05/31/2014 EF 65% . Overnight patient did well, denies complaints of chest pain, pressure, palpitations. Continued mild shortness of breath. Continue with medical management. Continue atenolol, aspirin, and simvastatin. Discontinue heparin drip. May consider increasing Imdur dosing, currently 30mg qd. (2) Chest pain Status: Resolved Per plan in assessment above. Qualifiers: Chest pain type: other chest pain Qualified Code(s): R07.89 - Other chest pain; R07.8 - Other chest pain (3) CAD (coronary artery disease), [place] coronary artery Status: Chronic Patient with known CAD s/p multiple stents and three vessel CABG in 1996. LHC 11/24/12 revealed stent in ostial location of the circumflex ok, dominant RCA free of disease, TRACY to LAD and distal run-off ok, proximal LAD has 70% lesion less that cardiac cath in 2008. LHC 03/30/17 yesterday revealed double vessel CAD, LV normal, EF 65%, s/p CABG 1 of 2 patent bypass grafts, and previously stented ostial/proximal Cx widely patent. Continue plan per assessments above. Qualifiers: [place] vs. transplanted heart: [place] heart Associated angina: with unstable angina Qualified Code(s): I25.110 - Atherosclerotic heart disease of [place] coronary artery with unstable angina pectoris (4) Hypertension Status: Chronic Bp 131/60, pulse 64. Known history of hypertension. Currently controlled, continue management per Hospitalist. Qualifiers: Hypertension type: essential hypertension Qualified Code(s): I10 - Essential (primary) hypertension (5) Hyperlipidemia Status: Chronic Known history of hyperlipidemia. Triglycerides 91, Cholesterol 158, LDL 97, VLDL 18, HDL 43 Continue simvastatin. Qualifiers: Hyperlipidemia type: unspecified Qualified Code(s): E78.5 - Hyperlipidemia , unspecified (6) Hx of CABG Status: Chronic . Discussion w patient/family: The assessment and plan as outlined above was discussed with the patient and/or family members who expressed understanding and agreement. All questions were answered. Thank you for involving us in the care of your patient. Please call with any questions. Subjective Principal diagnosis: NSTEMI Interval history: Patient reports doing well overnight. Denies chest pain or pressure and palpitations. Reports some mild shortness of breath when ambulating, but relieved quickly with oxygen. She denies use of oxygen at home. Patient denies fevers, chills, sweats, changes in vision or hearing, headaches, lightheadedness, dizziness, nausea, vomiting, abdominal pain, changes in bowels or bladder, weakness, or loss of sensation. Troponin elevated to 0.10 yesterday, patient underwent LHC. Double vessel CAD, LV normal, EF 65%, s/p CABG 1 of 2 patent bypass grafts, and previously stented ostial/proximal Cx widely patent. Objective Vital Signs, Last 4 Hours Temp Pulse Resp BP Pulse Ox 03/31/17 06:40 97.9 F 64 16 131/60 95 General: Conversant, No Apparent Distress HEENT: Atraumatic, Normocephaly, Mucus Membranes Moist Neck: No JVD, Normal carotid pulses Cardiac: Reg Rate and Rhythm, Other (grade 3 systolic murmur upper right sternal border) Lungs: Normal Breath Sounds, No Wheeze, Rales, Rhonchi Neuro: Alert and responsive, No focal deficits noted Abdomen: Soft, Non-Tender Skin: No rashes noted on visualized skin, Other (right groin cath site appears clean and dry.) Musculoskeletal: No Chest Wall Tenderness Extremities: No Clubbing, No Cyanosis, No Edema, Normal Pulses Results 03/31/17 05:00 03/31/17 05:00 Lab Results 03/30/17 03/31/17 03/31/17 10:22 05:00 05:00 WBC 8.1 Hgb 12.1 Hct 38.2 Plt Count 212 INR 1.2 APTT 27.1 Sodium Potassium Chloride Carbon Dioxide BUN Creatinine Glucose Calcium Troponin I 0.10 H* 03/31/17 05:00 WBC Hgb Hct Plt Count INR APTT Sodium 141 Potassium 3.6 Chloride 107 Carbon Dioxide 28 BUN 16 Creatinine 0.79 Glucose 95 Calcium 8.7 Troponin I Consult Discharge Plan - Plan Additional Instructions: Follow-up with primary care provider as scheduled, follow up with primary radio assembler within 1-2 weeks Referrals: Manjit Chandra [Non-Partnered Physician] - 04/05/17 12:45 pm Soy Mccord M.D. [Non-Partnered Physician] - Prescriptions: Isosorbide MONOnitrate (24 HR) [Imdur] 60 mg PO DAILY #30 tab.er.24h <Micaela Zaman - Last Filed: 03/31/17 16:25> Date of Encounter: 03/31/17 Assessment and Plan Discussion w patient/family: My medical decision-making was reviewed with the JAVA LEAD ENGINEER/PA/Advanced Practice Nurse /Resident Physician. I agree with the documented findings, disposition and treatment plan as described except to the extent set forth below. The patient was discharged before I was able to evaluate her today. I reviewed her case in detail with the resident. Cath yesterday did not reveal any new area of concern as an explanation for her symptoms and troponin elevation. She apparently had no complaints today and was without chest pain. Recommend considering a holter as an outpatient if symptoms return. She will remain on medical therapy. Results 03/31/17 05:00 03/31/17 05:00 Lab Results 03/31/17 03/31/17 03/31/17 05:00 05:00 05:00 WBC 8.1 Hgb 12.1 Hct 38.2 Plt Count 212 INR 1.2 APTT 27.1 Sodium 141 Potassium 3.6 Chloride 107 Carbon Dioxide 28 BUN 16 Creatinine 0.79 Glucose 95 Calcium 8.7
[2017-03-31] MEDS: Diltiazem SR (12hr) 60 MG CAPSULE PO SCH (08:36)
[2017-03-31] MEDS: Isosorbide MONOnitrate (24 HR) 30 MG TAB.ER.24H PO SCH (08:36)
[2017-03-31] MEDS: FENOFIBRATE MICRONIZED 200 MG PO SCH (08:44)
[2017-03-31] MEDS: Aspirin Enteric Coated 325 MG Tablet PO SCH (08:45)
[2017-03-31] MEDS: Furosemide 40 MG TABLET PO SCH (08:45)
--- NOTE | 2017-03-31 10:46 | Discharge Summary ---
Date of Encounter: 03/31/17 Time of Encounter: 09:30 - Discharge Diagnosis (1) NSTEMI (non-ST elevated myocardial infarction) Priority: Primary Status: Acute Comments: Troponins increased and peaked at 0.10. She was on a heparin drip during this admission. Cardiology performed a left heart catheter with no interventions with recommendation of medical management and increasing her Imdur. Follow up closely outpatient. Patient denied chest pain on day of discharge. (2) Chest pain Priority: Primary Status: Resolved Qualifiers: Chest pain type: other chest pain Qualified Code(s): R07.89 - Other chest pain; R07.8 - Other chest pain (3) Diastolic heart failure Priority: Secondary Status: Chronic Comments: No acute exacerbation. Euvolemic on examination during this admission. Continue furosemide. (4) CAD (coronary artery disease), [place] coronary artery Priority: Secondary Status: Chronic Qualifiers: [place] vs. transplanted heart: [place] heart Associated angina: with unstable angina Qualified Code(s): I25.110 - Atherosclerotic heart disease of [place] coronary artery with unstable angina pectoris (5) History of PTCA Priority: Secondary Status: Chronic (6) Hx of CABG Priority: Secondary Status: Chronic (7) Hypertension Priority: Secondary Status: Chronic Comments: Controlled with her home medications, follow up outpatient Qualifiers: Hypertension type: essential hypertension Qualified Code(s): I10 - Essential (primary) hypertension (8) Hyperlipidemia Priority: Secondary Status: Chronic Comments: Lipid panel normal. Recommend continue statin and continue low-cholesterol diet. Qualifiers: Hyperlipidemia type: unspecified Qualified Code(s): E78.5 - Hyperlipidemia , unspecified - Discharge Medications Prescriptions: Isosorbide MONOnitrate (24 HR) [Imdur] 60 mg PO DAILY #30 tab.er.24h Home Medications: Aspirin [Ecotrin] 325 mg PO DAILY 03/30/17 [History] Atenolol [Tenormin] 25 mg PO DAILY 03/30/17 [History] Atorvastatin [Lipitor] 40 mg PO HS 03/30/17 [History] Citalopram [CeleXA] 40 mg PO DAILY 03/30/17 [History] Diltiazem HCl 120 mg PO TID 03/30/17 [History] Fenofibrate,Micronized [Lofibra] 200 mg PO DAILY 03/30/17 [History] Furosemide [Lasix] 40 mg PO DAILY 03/30/17 [History] Levothyroxine [Synthroid] 125 mcg PO DAILY 03/30/17 [History] Methylphenidate HCl [Ritalin] 10 mg PO TID 03/30/17 [History] Nitroglycerin [Nitrostat] 0.4 mg SL PRN PRN 03/30/17 [History] Omeprazole 40 mg PO DAILY 03/30/17 [History] Potassium Chloride [Klor-Con 10] 10 meq PO TID 03/30/17 [History] Ropinirole HCl [Requip] 2 mg PO HS 03/30/17 [History] TraZODone 100 mg PO HS 03/30/17 [History] Diltiazem SR (12hr) [Cardizem SR] 120 mg PO BID cap.er.12h 03/31/17 [Rx] Isosorbide MONOnitrate (24 HR) [Imdur] 60 mg PO DAILY #30 tab.er.24h 03/31/17 [ Rx] Allergies/Adverse Reactions: Allergies Penicillins Allergy (Verified 03/29/17 22:54) Rash adhesive tape Adverse Reaction (Verified 03/29/17 22:54) Blister Procedures/tests Complete & Pending: Procedures Performed prior 72 hours Category Date Time Status CL Cardiac Catheterization [CL] Routine 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/30/17 12:44 Completed ECG 12 lead ECG [ECG] Routine Y 03/30/17 04:21 Ordered ECG 12 lead ECG [ECG] Routine Y 03/30/17 06:06 Completed ECG 12 lead ECG [ECG] Routine Y 03/31/17 07:00 Ordered EV echocardiogram Routine Y 03/30/17 04:21 Completed Date of admission: 03/30/17 00:47 Primary care physician: PCP NO Consults: 03/30/17 04:21 Consult to Cardiac Rehabilitation-Phase1 [CONS] Routine Comment: Reason for Consult: AMI Call Completed: Yes Consult to Nurse Navigator [CONS] Routine Comment: 03/30/17 06:06 Consult to Cardiac Rehabilitation-Phase1 [CONS] Routine Comment: Reason for Consult: AMI Call Completed: Yes 03/30/17 09:00 Consult to Cardiology [CONS] Routine Comment: Consulting Provider: Cardiology Yadira Reason for Consult: Acute chest pain syndrome in patient with CAD/PTCA+ multiple stents/CABG/AMIs. Please evaluate and advise. Time Notified: 04:28 Call Completed: No Discharging clinician: Savita Michael Anticipated date of discharge: 03/31/17 - Patient Status Disposition: Home, Self-Care Condition: Good Functional capacity at discharge: independent ambulation Overall status at discharge: patient is back to baseline - Discharge Instructions Follow Up With: Manjit Chandra [Non-Partnered Physician] - 04/05/17 12:45 pm Soy Mccord M.D. [Non-Partnered Physician] - Additional Instructions: Follow-up with primary care provider as scheduled, follow up with primary guest room inspector within 1-2 weeks - Diet and Activity Activity: increase activity as tolerated Diet: low fat, low cholesterol, low salt diet Hospital course: Ms. Hudson is a 71 year old female with past medical history of diastolic heart failure, coronary artery disease status post stents and CABG, GERD, hyperlipidemia, hypertension, hypothyroidism, chronic low back pain. Patient presented to the emergency department chief complaint of chest pain. Patient stating 2 hours prior to presentation she had acute onset of left-sided chest pain that radiated into her left shoulder and down her left arm. Patient stating this felt like prior heart attacks prompting her presentation. Patient also endorsed nausea and shortness of breath with her chest pain. She denied diaphoresis, palpitations, syncopal or presyncopal symptoms. Pain resolved with nitroglycerin spray and sublingual nitroglycerin tablets. Workup in the emergency department unremarkable. Chest x-ray negative for acute processes and revealed mild cardiomegaly. Patient was admitted to the hospitalist service for further evaluation and management. Initial troponin was negative however troponins became positive and peaked at 0.10. Patient was started on a heparin drip and cardiology was brought on board with new dx of NSTEMI. Cardiology proceeded with a left heart catheter that revealed 2 vessel CAD, EF of 65, CABG one of 2 patent bypass grafts and prior stent to the circumflex patent. Cardiology recommended increasing her Imdur and aggressive risk factor modification. Patient denied chest pain on day of discharge and she was able to tolerate a regular diet prior to discharge. Patient was on room air on day of discharge and denied chest pain or shortness of breath. She was discharged home in stable condition with close outpatient follow-up recommended. ITS Impressions Chest X-Ray 03/29/17 22:56 IMPRESSION: No acute process. Mild cardiomegaly and postthoracotomy changes. No evidence of CHF or pneumonia. D/ / 03/30/2017 06:30:55 Nancy Ashley MD / nura Interpreting Provider: Nancy Ashley MD Left heart catheter impressions: Double vessel coronary artery disease. The left ventricle was normal and has normal contractility ejection fraction 65%. Status post CABG one of 2 patent bypass grafts. Previously stented ostial/ proximal CX widely patent. Recommendations: Optimal medical therapy of patient' s disease. Aggressive risk factor modification. - Time Spent with Patient Total time spent providing and/or coordinating discharge services: - Constitutional Vitals: Temp Pulse Resp BP Pulse Ox 97.9 F 64 16 131/60 95 03/31/17 06:40 03/31/17 06:40 03/31/17 06:40 03/31/17 06:40 03/31/17 08:45 General appearance: Present: cooperative, A&O X 3, pleasant, no acute distress, answers questions appropriately - Head Head exam: Present: atraumatic, normocephalic - Eye Eye exam: Present: PERRL, conjuntiva pink, sclera anicteric Pupils: Present: PERRL - Neck Neck exam general surgery: Present: supple, trachea midline. Absent: lymphadenopathy - Respiratory Respiratory exam: Present: CTAB. Absent: accessory muscle use, rales, respiratory distress, rhonchi, wheezes - Cardiovascular Cardiovascular exam: Present: RRR, +S1, +S2. Absent: diastolic murmur, gallop, rubs, systolic murmur - GI/Abdominal GI/Abdominal exam: Present: normal bowel sounds, soft, no peritoneal signs. Absent: distended, tenderness - Extremities Exam Extremities exam: Present: warm, radial pulses palpable and symetrical. Absent : calf tenderness, cyanotic, pedal edema - Neurological Exam Neurological exam: Present: alert, CN II-XII intact, normal gait, oriented X3, no focal deficits, strengths equal and symetr throughout. Absent: pronater drift, facial droop, speech deficit - Skin Skin exam: Present: dry, intact, normal color, warm
== END 2017-03-31 13:31 | disposition home or self-care (01) ==
LOC: 3BNU 22:43 → EMEROO 22:43 → SUATTDRO 03-30 00:47 → 3BNU 03-30 00:59
PROVIDERS: ADMIT Internal Medicine; ATTEND Nurse Practitioner Family

== ENCOUNTER 2019-07-31 12:02 | Observation (INO) ==
--- NOTE | 2019-07-31 12:09 | Emergency Department Note ---
Disposition Clinical Impression: Shortness of breath, CHF exacerbation Chest pain Qualifiers: Chest pain type: unspecified Qualified Code(s): R07.9 - Chest pain, unspecified Disposition: Admitted As Inpatient Time of Disposition: 15:07 General Adult HPI - General Stated complaint: chest pain Time Seen by Provider: 07/31/19 12:08 Source: patient Nursing Notes Reviewed: Yes Vital Signs Reviewed: Yes - History of Present Illness HPI Narrative: Patient is a 73-year-old female with a past medical history including hypothyroidism, CHF, CAD status post CO with one stent placement, hypertension, hyperlipidemia, diabetes mellitus, presenting with a chief complaint of chest pain, generalized weakness. The patient states 2 days ago while at work, she developed a sharp substernal chest pain that was nonradiating associated with shortness of breath and generalized weakness. She states she went home and took 2 nitroglycerin, 4 baby aspirin. She lay down and her pain was resolved several minutes after taking the medications. She states since then, she complains of intermittent episodes of generalized chest discomfort that she describes as heaviness. She feels short of breath with ambulation. She denies any nausea or vomiting, lightheadedness or dizziness, diaphoresis. She states this feels similar to her prior heart attack. She feels generally weak. She denies any fevers or chills, cough, hemoptysis, lower extremity swelling, recent travel or surgery, recent antibiotic use, dysuria hematuria, abnormal bowel movements, abdominal pain. Patient does note that her primary care physician recently increased her Synthroid last week. Patient does note that she has not taken her Lasix in the past week. She does have increased lower extremity swelling. - Related Data Home Medications Medication Instructions Recorded Confirmed Aspirin [Ecotrin] 325 mg PO DAILY 03/30/17 07/31/19 Atenolol [Tenormin] 25 mg PO HS 03/30/17 07/31/19 Citalopram [CeleXA] 40 mg PO HS 03/30/17 07/31/19 Methylphenidate HCl [Ritalin] 10 mg PO BID 03/30/17 07/31/19 Nitroglycerin [Nitrostat] 0.4 mg SL PRN PRN 03/30/17 07/31/19 Omeprazole 20 mg PO QAM 03/30/17 07/31/19 Potassium Chloride [Klor-Con 10] 10 meq PO BID 03/30/17 07/31/19 traZODone [TraZODone] 100 mg PO HS PRN 03/30/17 07/31/19 Atorvastatin Calcium [Lipitor] 80 mg PO HS 04/12/19 07/31/19 Ezetimibe 10 mg PO DAILY 04/12/19 07/31/19 Isosorbide MONOnitrate (24 HR) 60 mg PO QAM 04/12/19 07/31/19 [Imdur] Spironolactone 25 mg PO DAILY 04/12/19 07/31/19 Torsemide [Demadex] 20 mg PO DAILY 04/12/19 07/31/19 dilTIAZem HCl [Diltiazem HCl] 120 mg PO DAILY 04/12/19 07/31/19 Levothyroxine Sodium [Levo-T] 88 mcg PO DAILY 07/31/19 07/31/19 Ropinirole HCl [Requip] 2 mg PO DAILY 07/31/19 07/31/19 Allergies Allergy/AdvReac Type Severity Reaction Status Date / Time Penicillins Allergy Rash Verified 04/12/19 16:34 adhesive tape AdvReac Blister Verified 04/12/19 16:34 All systems ED: reviewed and negative except as stated. Review of Systems: As Per HPI Constitutional: Denies: fever, chills Cardiovascular: Reports: chest pain Respiratory: Reports: dyspnea Gastrointestinal: Denies: abdominal pain, nausea, vomiting Genitourinary: Denies: dysuria Musculoskeletal: Denies: back pain Past Medical History - Past Medical History Attestation: Yes The following information was validated with the patient. Source: patient Medical history: Reports: arthritis, cancer, CHF, coronary artery disease, GERD, hyperlipidemia, myocardial infarction, osteoporosis, thyroid disease, other Surgical history: Reports: angioplasty/stent, coronary bypass (CABG), other Psychiatric history: Reports: anxiety, depression, other - Social History Smoking Status: Never smoker Smokeless Tobacco Status: No Alcohol use: Reports: none Drug use: Reports: none Physical Exam - General Limitations: no limitations General appearance: alert, in no apparent distress - Head Head exam: atraumatic, normocephalic - Eye Eye exam: Present: normal appearance, EOMI - ENT ENT exam: normal exam, normal oropharynx - Neck Neck exam: Present: normal inspection, trachea midline - Chest Chest inspection: Present: normal inspection, symmetric chest wall rise - Respiratory Respiratory exam: Present: normal lung sounds bilaterally. Absent: respiratory distress, wheezes - Cardiovascular Cardiovascular exam: Present: regular rate, normal rhythm - Abdominal Exam Abdominal exam: Present: soft, Non-Tender. Absent: distention - Extremities Exam Extremities exam: Present: full ROM, normal capillary refill, other (2+ pitting edema bilateral lower extremities). Absent: calf tenderness - Neurological Exam Neurological exam: Present: alert, oriented X3 - Psychiatric Psychiatric exam: Present: normal affect, normal mood - Skin Skin exam: Present: warm, dry. Absent: diaphoresis, pallor Course Vital Signs Temperature 98.8 F 07/31/19 12:09 Pulse Rate 53 07/31/19 12:09 Respiratory Rate 20 07/31/19 12:09 Blood Pressure 106/55 07/31/19 12:09 O2 Sat by Pulse Oximetry 100 07/31/19 12:09 Temperature 98.8 F 07/31/19 12:09 Pulse Rate 53 07/31/19 12:09 Respiratory Rate 16 07/31/19 14:19 Blood Pressure 99/53 07/31/19 14:19 O2 Sat by Pulse Oximetry 97 07/31/19 12:18 Oxygen Delivery Oxygen Delivery Nasal Cannula Medical Decision Making - [facility] Narrative Medical decision making narrative: Patient is presenting with chest pain, shortness of breath and generalized weakness. The patient states her chest pain is much improved today and has occasional discomfort that she describes as heaviness. 2 days ago, her chest pain resolved with nitroglycerin and 4 baby aspirin. She is given a full dose aspirin here today. Vitals within normal limits, she is afebrile. No acute distress and nontoxic appearing. We will obtain ACS workup. Suspect CHF exacerbation and will need ACS workup. Patient has not had her Lasix in one week. 13:00 Labs reviewed. Troponin less than 0.03. EKG shows no acute ischemic changes. Hospitalist paged for admission for ACS workup, CHF exacerbation. Lasix and BNP ordered. Chest x-ray shows no acute cardiopulmonary abnormality. 13:10 Discussed with hospitalist, Dr. Shaw who accepts admission. Patient remains stable at this time. - Medical Records Medical records reviewed: Yes I reviewed the patient's medical records. - Lab Data Lab results reviewed: Yes I reviewed the patient's lab results. Result diagrams: 07/31/19 12:17 07/31/19 12:17 Lab Results 07/31/19 07/31/19 07/31/19 Range/Units 12:17 12:17 12:17 WBC 12.1 H (4.3-11.1) K/mcL RBC 3.72 L (3.82-4.97) M/mcL Hgb 10.3 L (11.5-15.4) g/dL Hct 33.4 L (35.3-44.9) % MCV 89.8 (83.0-100.0) fL MCH 27.7 L (28.0-33.3) pg MCHC 30.8 L (31.6-35.5) g/dL RDW 14.7 H (11.5-14.5) % Plt Count 176 (140-400) K/mcL MPV 9.5 (9.4-12.4) fL Immature Gran % 0.5 (0-4) % Seg Neutrophils % 69.6 % Lymphocytes % 22.3 % Monocytes % 6.2 % Eosinophils % 1.2 % Basophils % 0.2 % Neutrophils # 8.4 (1.6-8.9) K/mcL Lymphocytes # 2.7 (0.6-4.6) K/mcL Monocytes # 0.8 (0.0-1.3) K/mcL Eosinophils # 0.2 (0.0-0.6) K/mcL Basophils # 0.0 (0.0-0.2) K/mcL Sodium 139 (136-145) mEq/L Potassium 4.1 (3.5-5.1) mEq/L Chloride 104 (98-107) mEq/L Carbon Dioxide 24 (23-29) mEq/L BUN 24 H (8-23) mg/dL Creatinine 1.19 (0.60-1.20) mg/dL Est GFR ( Amer) 54 L (> 60) Est GFR (Non-Af Amer) 44 L (> 60) BUN/Creatinine Ratio 20 (6-26) Glucose 128 H (70-105) mg/dL Calculated Osmolality 294 (280-300) Calcium 8.9 (8.6-10.3) mg/dL Troponin I < 0.03 (< 0.04) ng/mL B-Natriuretic Peptide 147 H (Less than 100) pg/mL - Radiology Data Radiology results reviewed: Yes I reviewed the patient's radiology results. Chest X-Ray 07/31/19 12:09 IMPRESSION: No acute cardiopulmonary disease. D/ / 07/31/2019 13:34:45 Sheldon Galvan MD / prema Interpreting Provider: Sheldon Galvan MD - EKG Data EKG #1 EKG attestation: Yes I reviewed and interpreted this EKG. EKG results narrative: EKG obtained at 1208 shows sinus rhythm with heart rate 56, IA interval 197, QRS duration 83, QTC 447, no ST elevation, no ST depression, compared to old EKG on 04/12/2019 which shows no new changes. Attestation Statement - Attestation Attestation: I, Ariel Nice, examined this patient and my medical decision-making was reviewed with the ORCHESTRA TEACHER/PA/Advanced Practice Nurse/Resident Physician. I agree with the documented findings, disposition and treatment plan as described except to the extent set forth below. 73-year-old female presents emergency Department with concerns of chest pain. Patient has a history of congestive heart failure, coronary artery disease, hypertension, hyperlipidemia, diabetes, CO status post 1 stent. Patient notes that she been having increased shortness breath and weakness. She has been having chest pain over the past few days. She does report the pain is worse with exertion. Patient reports that she has not been taking her torsemide over the past week and a half as she "did not have time to take it". Patient reports a history of congestive heart failure in the past. Patient denies fever, chills, nausea, vomiting, productive cough, abdominal pain, diarrhea, hematochezia, melena. Chest x-ray shows vascular congestion. Patient has elevation of her BNP. EKG did not show evidence of STEMI.I reviewed the EKG with the resident and agree with the interpretation. Patient given Lasix in the emergency department and will be admitted to the hospitalist for further care and evaluation.
[2019-07-31] MEDS ORDERED: Aspirin 81 MG TAB.CHEW PO STA (12:18)
[2019-07-31 12:46] LABS: Basophils % 0.2 %; Eosinophils # 0.2 K/mcL (0.0-0.6); Eosinophils % 1.2 %; Hematocrit 33.4 % (35.3-44.9); Hemoglobin 10.3 g/dL (11.5-15.4); Immature Granulocytes % 0.5 % (0-4); Lymphocytes # 2.7 K/mcL (0.6-4.6); Lymphocytes % 22.3 %; Mean Corpuscular HGB Conc 30.8 g/dL (31.6-35.5); Mean Corpuscular Hemoglobin 27.7 pg (28.0-33.3); Mean Corpuscular Volume 89.8 fL (83.0-100.0); Mean Platelet Volume 9.5 fL (9.4-12.4); Monocytes # 0.8 K/mcL (0.0-1.3); Monocytes % 6.2 %; Neutrophils # 8.4 K/mcL (1.6-8.9); Platelet Count 176 K/mcL (140-400); Red Blood Count 3.72 M/mcL (3.82-4.97); Red Cell Distribution Width 14.7 % (11.5-14.5); Segmented Neutrophils % 69.6 %; White Blood Count 12.1 K/mcL (4.3-11.1)
[2019-07-31 12:51] LABS: BUN/Creatinine Ratio 20 (6-26); Blood Urea Nitrogen 24 mg/dL (8-23); Calcium 8.9 mg/dL (8.6-10.3); Carbon Dioxide 24 mEq/L (23-29); Chloride 104 mEq/L (98-107); Glucose 128 mg/dL (70-105); Osmolality,Calculated 294 (280-300); Potassium 4.1 mEq/L (3.5-5.1); Sodium 139 mEq/L (136-145); Troponin I < 0.03 ng/mL (< 0.04); eGFR For African Americans 54 (> 60); eGFR For Non-African Americans 44 (> 60)
[2019-07-31] MEDS ORDERED: Furosemide 40 MG/4 ML VIAL IVP ONE (13:25)
[2019-07-31] MEDS ORDERED: *HR* HYDROcodone/Acet 5/325 mg TABLET PO PRN (14:25)
[2019-07-31] MEDS ORDERED: Acetaminophen 325 MG TABLET PO PRN (14:25)
[2019-07-31] MEDS ORDERED: Naloxone 0.4 MG/ML INJ IVP PRN (14:25)
[2019-07-31] MEDS ORDERED: Ondansetron ODT 4 MG TAB.RAPDIS SL PRN (14:25)
[2019-07-31] MEDS ORDERED: traZODone 50 MG TABLET PO PRN (14:29)
[2019-07-31] MEDS ORDERED: Nitroglycerin 0.4 MG TAB.SUBL SL PRN (14:29)
--- NOTE | 2019-07-31 15:13 | Internal Med History&Physical ---
Date of Encounter: 07/31/19 Time of Encounter: 14:35 Internal Medicine - H&P: HPI Chief complaint: CP/weakness Admitted From: Emergency Dept Plans for Post Hospital Care: Home History of present illness: Ms. Hudson is a 73 year old female past medical history of coronary artery disease with stent placement 2 CABG CAD and CHF hyperlipidemia for hemorrhoid disease anxiety depression history of breast and bone cancer. Patient has been experiencing intermittent chest pain since Wednesday. She states while at work she developed sudden onset of sharp substernal chest pain is nonradiating with associated symptoms of shortness of breath generalized weakness. She stated the pain then became more heavy pressure-like she did take 2 nitroglycerin and 4 baby aspirins after resting her pain did improve however since this incident she has been experiencing intermittent episodes of chest heaviness and feels short of breath with ambulation. She denies any nausea vomiting or lightheadedness dizziness or diaphoresis. She does admit that she has not been very compliant with her diuretic use because it does interfere with her work and she well not take it at times. She states that she does adhere to a low-sodium diet however she does not monitor her fluid intake. She does say she has had a 6 pound weight gain but this is been over the past 6 months. She does have a family history of coronary disease her mother's side her sister has heart disease as well as a sister that had a stroke. Her brother has a history of cancer and heart disease. Father had a cerebral hemorrhage. Her primary care provider just recently increased her Synthroid as well. In the ER lab work appears unremarkable troponin was negative and initial EKG with no ischemic changes chest x-ray with nothing acute signs are stable. Discussed CODE STATUS and patient would like to be a DNR CCA Past Med Surg Social Fam HX - Past Medical History Medical history: arthritis, cancer, CHF, coronary artery disease, GERD, hyperlipidemia, myocardial infarction, osteoporosis, thyroid disease, other Additional medical history: Breast and Bone Cancer Psychiatric history: anxiety, depression, other - Past Surgical History Surgical History: angioplasty/stent, coronary bypass (CABG), other Additional surgical history: R breast lumpectomy and lymph node removal, R M ASECTOMY. cardiac stents - Social History Smoking Status: Never smoker Smokeless Tobacco Status: No Alcohol use: none Drug use: none - Family History Mother Living Status: Hx Family Cardiac Disorders: Yes (CAD) Father Living Status: Internal Medicine - H&P: Meds Aspirin [Ecotrin] 325 mg PO DAILY 03/30/17 [History] Atenolol [Tenormin] 25 mg PO HS 03/30/17 [History] Citalopram [CeleXA] 40 mg PO HS 03/30/17 [History] Methylphenidate HCl [Ritalin] 10 mg PO BID 03/30/17 [History] Nitroglycerin [Nitrostat] 0.4 mg SL PRN PRN 03/30/17 [History] Omeprazole 20 mg PO QAM 03/30/17 [History] Potassium Chloride [Klor-Con 10] 10 meq PO BID 03/30/17 [History] traZODone [TraZODone] 100 mg PO HS PRN 03/30/17 [History] Atorvastatin Calcium [Lipitor] 80 mg PO HS 04/12/19 [History] Ezetimibe 10 mg PO DAILY 04/12/19 [History] Isosorbide MONOnitrate (24 HR) [Imdur] 60 mg PO QAM 04/12/19 [History] Spironolactone 25 mg PO DAILY 04/12/19 [History] Torsemide [Demadex] 20 mg PO DAILY 04/12/19 [History] dilTIAZem HCl [Diltiazem HCl] 120 mg PO DAILY 04/12/19 [History] Levothyroxine Sodium [Levo-T] 88 mcg PO DAILY 07/31/19 [History] Ropinirole HCl [Requip] 2 mg PO DAILY 07/31/19 [History] Allergy/AdvReac Type Severity Reaction Status Date / Time Penicillins Allergy Rash Verified 04/12/19 16:34 adhesive tape AdvReac Blister Verified 04/12/19 16:34 All Systems PM: A 10-system review of systems was performed and is negative for pertinent findings except as documented above in the HPI. - Constitutional Constitutional: weakness, no chills, no fever(s), no night sweats - EENT Eyes: no change in vision, no discharge, no pain, no photophobia Ears: no ear discharge, no ear pain, no tinnitus Nose, mouth and throat: no dysphagia, no nasal discharge, no neck pain, no sore throat - Cardiovascular Cardiovascular ROS IM: chest pain, dyspnea on exertion, edema - Respiratory Respiratory: no cough, no dyspnea, no wheezing, no excessive phlegm production - Gastrointestinal Gastrointestinal: no abdominal pain, no diarrhea, no hematemesis, no hematochezia, no melena, no nausea, no vomiting - Genitourinary Genitourinary: no change in urinary stream, no dysuria, no flank pain, no hematuria - Musculoskeletal Musculoskeletal ROS IM: no numbness, no tingling - Integumentary Integumentary IM: no rash, no unusual bruising - Neurological Neurological ROS: no confusion, no convulsions, no focal weakness, no numbness, no tingling, no tremor(s) - Hematologic/Lymphatic Hematologic/Lymphatic: no easy bruising - Constitutional Vitals: Temp Pulse Resp BP Pulse Ox 98.8 F 53 16 99/53 97 07/31/19 12:09 07/31/19 12:09 07/31/19 14:19 07/31/19 14:19 07/31/19 12:18 General appearance: Present: A&O X 3 Exam: . - Head Head exam: Present: atraumatic, normocephalic - Eye Eye exam: Present: PERRL, conjuntiva pink, sclera anicteric Pupils: Present: PERRL - Neck Neck exam general surgery: Present: supple, trachea midline. Absent: lymphadenopathy - Respiratory Respiratory exam: Present: CTAB. Absent: accessory muscle use, rales, rhonchi, wheezes - Cardiovascular Cardiovascular exam: Present: RRR, +S1, +S2. Absent: diastolic murmur, gallop, rubs, systolic murmur - GI/Abdominal GI/Abdominal exam: Present: normal bowel sounds, soft, no peritoneal signs. Absent: distended, tenderness - Extremities Exam Extremities exam: Present: pedal edema, warm, radial pulses palpable and symmetrical. Absent: calf tenderness, cyanotic - Neurological Exam Neurological exam: Present: CN II-XII intact, oriented X3, no focal deficits. Absent: pronater drift, facial droop, speech deficit - Skin Skin exam: Present: dry, intact Internal Med - H&P Results - Labs CBC & Chem 7: 07/31/19 12:17 07/31/19 12:17 Labs: Short CBC 07/31/19 Range/Units 12:17 WBC 12.1 H (4.3-11.1) K/mcL Hgb 10.3 L (11.5-15.4) g/dL Hct 33.4 L (35.3-44.9) % Plt Count 176 (140-400) K/mcL Neutrophils # 8.4 (1.6-8.9) K/mcL BMP 07/31/19 12:17 Sodium 139 Potassium 4.1 Chloride 104 Carbon Dioxide 24 BUN 24 H Creatinine 1.19 Glucose 128 H Calcium 8.9 Cardiac Enzymes 07/31/19 Range/Units 12:17 Troponin I < 0.03 (< 0.04) ng/mL - Impressions ITS Impressions Chest X-Ray 07/31/19 12:09 IMPRESSION: No acute cardiopulmonary disease. D/ / 07/31/2019 13:34:45 Sheldon Galvan MD / prema Interpreting Provider: Sheldon Galvan MD - Diagnostic Studies Chest x-ray Additional comments: Chest X-Ray 07/31/19 12:09 IMPRESSION: No acute cardiopulmonary disease. D/ / 07/31/2019 13:34:45 Sheldon Galvan MD / prema Interpreting Provider: Sheldon Galvan MD - Assessment and Plan (1) Chest pain Current Visit: Yes Status: Acute Assessment and plan: Patient presented after experiencing intermittent midsternal chest pressure has been occurring since Wednesday. There are no aggravating factors-pain somewhat relieved with nitroglycerin she does have a cardiac history with a CABG as well as stent placement 2 and [place] in 2017. She states that she has not been compliant with her Lasix and has not been taking it over the past week because it interferes with her job last cardiac catheter was completed 03/30/2017 she has not had a stress test in some time Initial troponin was negative we will continue to trend troponins Continuous cardiac monitoring We will obtain EKG a.m. Cardiac echo completed 04/13/29-which did reveal EF of 60% with mild concentric left ventricular hypertrophy moderate left ventricular diastolic dysfunction normal right ventricular structure and function mild tricuspid regurgitation and no evidence of pulmonary hypertension Continue with nitroglycerin as needed for chest pain Continue with aspirin and beta oralia and statin We will obtain lipid profile Nothing by mouth after midnight-for possible stress test in a.m. Consider stress test in a.m. if workup is negative Consult cardiology as needed We will check TSH Qualifiers: Chest pain type: unspecified Qualified Code(s): R07.9 - Chest pain, unspecified (2) DVT prophylaxis Current Visit: No Status: Acute Assessment and plan: Heparin subcutaneous (3) Weakness Current Visit: No Status: Acute Assessment and plan: Patient states been experiencing chest pain as well as generalized weakness. We will complete cardiac workup Check TSH patient had recent change and Synthroid (4) CAD (coronary artery disease), [place] coronary artery Current Visit: No Status: Chronic Assessment and plan: Patient did have a history of a CABG in 1996 and stent placement 2 with last stent placed in 2004. Last cardiac catheter was in 2016. Continue with aspirin and statin beta oralia Nitroglycerin Glycerin as needed for chest pain Qualifiers: [place] vs. transplanted heart: [place] heart Associated angina: with unstable angina Qualified Code(s): I25.110 - Atherosclerotic heart disease of [place] coronary artery with unstable angina pectoris (5) Diastolic heart failure Current Visit: Yes Status: Acute Assessment and plan: Patient has a history of diastolic heart failure with EF of 60%. Patient does admit that she has not been taking her Lasix as well as not monitoring fluid intake she does have lower extremity swelling and increased shortness of breath on exertion she has also been experiencing intermittent chest pain. Chest x-ray shows nothing acute We will diurese the patient with 20 of Lasix IV daily Monitor intake and output daily weights Low-sodium diet 1500 mL fluid restriction Continue beta oralia Qualifiers: Heart failure chronicity: acute on chronic Qualified Code(s): I50.33 - Acute on chronic diastolic (congestive) heart failure (6) Hx of CABG Current Visit: No Status: Chronic Assessment and plan: Continue with aspirin and statin beta oralia (7) Hypothyroid Current Visit: No Status: Chronic Assessment and plan: Patient has a history of hypothyroid was recently advised by PCP to increase Synthroid to 88 g daily We will check TSH Qualifiers: Hypothyroidism type: unspecified Qualified Code(s): E03.9 - Hypothyroidism, unspecified - Time Spent With Patient Total time spent is greater than 50% in coordination of care (as documented) at patient's floor/unit and/or counseling patient:
[2019-07-31] MEDS: *HR* Heparin 5,000 UNIT/ML VIAL SQ SCH (17:59)
[2019-07-31] MEDS ORDERED: Furosemide 20 MG/2 ML VIAL IVP ONE ×2 (18:10→21:00)
[2019-07-31] MEDS: Methylphenidate HCl 10 MG TABLET PO SCH (21:34)
[2019-08-01 01:38] LABS: Basophils % 0.3 %; Eosinophils # 0.2 K/mcL (0.0-0.6); Eosinophils % 2.1 %; Hematocrit 33.9 % (35.3-44.9); Hemoglobin 10.7 g/dL (11.5-15.4); Immature Granulocytes % 0.2 % (0-4); Lymphocytes % 28.3 %; Mean Corpuscular HGB Conc 31.6 g/dL (31.6-35.5); Mean Corpuscular Hemoglobin 28.2 pg (28.0-33.3); Mean Corpuscular Volume 89.2 fL (83.0-100.0); Mean Platelet Volume 9.2 fL (9.4-12.4); Monocytes # 0.8 K/mcL (0.0-1.3); Monocytes % 7.9 %; Neutrophils # 6.6 K/mcL (1.6-8.9); Platelet Count 172 K/mcL (140-400); Red Cell Distribution Width 14.7 % (11.5-14.5); Segmented Neutrophils % 61.2 %; White Blood Count 10.7 K/mcL (4.3-11.1)
[2019-08-01 02:00] LABS: BUN/Creatinine Ratio 24 (6-26); Blood Urea Nitrogen 22 mg/dL (8-23); Calcium 8.8 mg/dL (8.6-10.3); Carbon Dioxide 24 mEq/L (23-29); Chloride 104 mEq/L (98-107); Chol/HDL Ratio 2.8 (0-4.9); Cholesterol 119 mg/dL (< 200); Glucose 95 mg/dL (70-105); HDL Cholesterol 42 mg/dL (40-59); LDL Cholesterol,Calculated 41 mg/dL (0-99); Magnesium 1.7 mg/dL (1.6-2.6); Osmolality,Calculated 289 (280-300); Potassium 3.5 mEq/L (3.5-5.1); Sodium 138 mEq/L (136-145); Triglycerides 179 mg/dL (< 150); eGFR For African Americans > 60 (> 60); eGFR For Non-African Americans > 60 (> 60)
[2019-08-01 02:12] LABS: Thyroid Stimulating Hormone 31.449 mcIU/mL (0.340-5.600)
[2019-08-01] MEDS: *HR* Heparin 5,000 UNIT/ML VIAL SQ SCH ×2 (05:33→17:02)
[2019-08-01] MEDS: Isosorbide MONOnitrate (24 HR) 60 MG TAB.ER.24H PO SCH (08:18)
[2019-08-01] MEDS: Diltiazem CD (24hr) 120 MG CAPSULE PO SCH (08:18)
[2019-08-01] MEDS: Aspirin Enteric Coated 325 MG Tablet PO SCH (08:19)
[2019-08-01] MEDS: Methylphenidate HCl 10 MG TABLET PO SCH ×2 (08:19→20:05)
[2019-08-01] MEDS ORDERED: (Ezetimibe 10 MG) PO SCH (09:00)
[2019-08-01] MEDS: Furosemide 20 MG/2 ML VIAL IVP SCH (10:03)
--- NOTE | 2019-08-01 10:12 | Internal Med Progress Note ---
Hospitalist Progress Note - Encounter Date of Encounter: 08/01/19 Time of Encounter: 09:58 - Subjective Interval History: She was seen and examined at bedside she does complain some chest pain overnight however this resolved on its own. Troponins have been negative-discussed with cardiology ABLE BODIED TANKERMAN who agrees with stress - unfortunately patient was given Imdur this am - Exam Vitals: Temp Pulse Resp BP Pulse Ox 98.0 F 70 17 100/50 98 08/01/19 09:36 08/01/19 09:36 08/01/19 09:36 08/01/19 07:22 08/01/19 07:22 Exam: Skin: Free of rash and discoloration. Eyes: Sclera is white. There is no discharge from eyes. ENMT: Oral/pharyngeal mucosa is normal in appearance. There is no discharge from nose or ears. Respiratory: Normal breath sounds with no crackles and wheezes bilaterally. CV: Heart is regular with no gallop or murmur. GI: Abdomen is flat and soft with no palpable mass or visceromegaly. : There is no tenderness in patient's flanks bilaterally. Neuro exam: He has good strength in upper and lower extremities. He has normal eye movements. Psychiatric: He has normal affect. His thought process is appropriate to the situation. - Assessment and Plan (1) Chest pain Current Visit: Yes Status: Acute Assessment and Plan: Patient presented after experiencing intermittent midsternal chest pressure has been occurring since Wednesday. There are no aggravating factors-pain somewhat relieved with nitroglycerin she does have a cardiac history with a CABG as well as stent placement 2 and [place] in 2017. She states that she has not been compliant with her Lasix and has not been taking it over the past week because it interferes with her job last cardiac catheter was completed 03/30/2017 she has not had a stress test in some time Initial troponin was negative we will continue to trend troponins Continuous cardiac monitoring We will obtain EKG a.m. Cardiac echo completed 04/13/29-which did reveal EF of 60% with mild concentric left ventricular hypertrophy moderate left ventricular diastolic dysfunction normal right ventricular structure and function mild tricuspid regurgitation and no evidence of pulmonary hypertension Continue with nitroglycerin as needed for chest pain Continue with aspirin and beta oralia and statin We will obtain lipid profile Nothing by mouth after midnight-for possible stress test in a.m. Consider stress test in a.m. if workup is negative Consult cardiology as needed We will check TSH 08/01 Troponins have been negative 3-suspect may be related to CHF exacerbation we will continue with diuresis-stress test has been ordered however this will be deferred for today due to patient received Imdur Heart echo is pending at this time TSH was elevated however T4-WNL we will continue with current Synthroid dose Consult cardiology as needed (2) DVT prophylaxis Current Visit: No Status: Acute Assessment and Plan: Heparin subcutaneous (3) Weakness Current Visit: No Status: Acute Assessment and Plan: Patient states been experiencing chest pain as well as generalized weakness. We will complete cardiac workup Check TSH patient had recent change and Synthroid 08/01/2019 Patient has been experiencing chest pain generalized weakness-we will continue diuresis patient for CHF TSH has been elevated however T4 stable continue with current dose of Synthroid PT/OT for evaluation (4) CAD (coronary artery disease), [place] coronary artery Current Visit: No Status: Chronic Assessment and Plan: Patient did have a history of a CABG in 1996 and stent placement 2 with last stent placed in 2004. Last cardiac catheter was in 2016. Continue with aspirin and statin beta oralia Nitroglycerin Glycerin as needed for chest pain (5) Diastolic heart failure Current Visit: Yes Status: Acute Assessment and Plan: Patient has a history of diastolic heart failure with EF of 60%. Patient does admit that she has not been taking her Lasix as well as not monitoring fluid intake she does have lower extremity swelling and increased shortness of breath on exertion she has also been experiencing intermittent chest pain. Chest x-ray shows nothing acute We will diurese the patient with 20 of Lasix IV daily Monitor intake and output daily weights Low-sodium diet 1500 mL fluid restriction Continue beta oralia 08/01 Today lower extremity swelling much improved-she does admit she has not been taking her Lasix at home Continue with IV Lasix Monitor intake and output daily weights Continue low-sodium diet as well as 1500 mL fluid restriction She will require heart failure education prior to discharge (6) Hx of CABG Current Visit: No Status: Chronic Assessment and Plan: Continue with aspirin and statin beta oralia (7) Hypothyroid Current Visit: No Status: Chronic Assessment and Plan: Patient has a history of hypothyroid was recently advised by PCP to increase Synthroid to 88 g daily TSH was elevated however T4 within normal limits we will continue with current dose of Synthroid and have patient follow-up as outpatient - Time Spent with Patient Total time spent is greater than 50% in coordination of care (as documented) at patient's floor/unit and/or counseling patient: Internal Medicine: Result - Labs CBC & Chem 7: 08/01/19 00:32 08/01/19 00:32 Labs: Short CBC 07/31/19 08/01/19 Range/Units 12:17 00:32 WBC 12.1 H 10.7 (4.3-11.1) K/mcL Hgb 10.3 L 10.7 L (11.5-15.4) g/dL Hct 33.4 L 33.9 L (35.3-44.9) % Plt Count 176 172 (140-400) K/mcL Neutrophils # 8.4 6.6 (1.6-8.9) K/mcL BMP 07/31/19 08/01/19 12:17 00:32 Sodium 139 138 Potassium 4.1 3.5 Chloride 104 104 Carbon Dioxide 24 24 BUN 24 H 22 Creatinine 1.19 0.91 Glucose 128 H 95 Calcium 8.9 8.8 Cardiac Enzymes 07/31/19 07/31/19 08/01/19 Range/Units 12:17 18:14 00:32 Troponin I < 0.03 < 0.03 < 0.03 (< 0.04) ng/mL - Impressions Impressions Chest X-Ray 07/31/19 12:09 IMPRESSION: No acute cardiopulmonary disease. D/ / 07/31/2019 13:34:45 Sheldon Galvan MD / prema Interpreting Provider: Sheldon Galvan MD Consult Discharge Plan - Plan Referrals: Manjit Chandra [Primary Care Provider] - (1) Chest pain Qualifiers: Chest pain type: unspecified Qualified Code(s): R07.9 - Chest pain, unspecified (4) CAD (coronary artery disease), [place] coronary artery Qualifiers: [place] vs. transplanted heart: [place] heart Associated angina: with unstable angina Qualified Code(s): I25.110 - Atherosclerotic heart disease of [place] coronary artery with unstable angina pectoris (5) Diastolic heart failure Qualifiers: Heart failure chronicity: acute on chronic Qualified Code(s): I50.33 - Acute on chronic diastolic (congestive) heart failure (7) Hypothyroid Qualifiers: Hypothyroidism type: unspecified Qualified Code(s): E03.9 - Hypothyroidism, unspecified
--- NOTE | 2019-08-01 13:44 | Electrocardiograph Report ---
[address] [address] Test Date: 2019-07-31 Pat Name: Leela Hudson Department: [id number] Room: 3B33 Gender: Turn Laster: : 1945 Requested By: Teresa Galindo Order Number: [id number] Reading MD: Anjali Peralta Measurements Intervals [place] Rate: 56 P: 31 VT: 197 QRS: 46 QRSD: 83 T: 43 QT: 463 QTc: 447 Interpretive Statements Sinus rhythm Electronically Signed On 08-01-2019 13:42:27 EDT by Anjali Peralta
[2019-08-01] MEDS: rOPINIRole 1 MG TABLET PO SCH (20:06)
[2019-08-02 04:38] LABS: BUN/Creatinine Ratio 21 (6-26); Blood Urea Nitrogen 19 mg/dL (8-23); Calcium 8.8 mg/dL (8.6-10.3); Carbon Dioxide 24 mEq/L (23-29); Chloride 105 mEq/L (98-107); Glucose 93 mg/dL (70-105); Osmolality,Calculated 288 (280-300); Potassium 3.6 mEq/L (3.5-5.1); Sodium 138 mEq/L (136-145); eGFR For African Americans > 60 (> 60); eGFR For Non-African Americans > 60 (> 60)
[2019-08-02] MEDS: *HR* Heparin 5,000 UNIT/ML VIAL SQ SCH (06:03)
[2019-08-02] MEDS ORDERED: Regadenoson 0.4 MG/5 ML SYRINGE IVP ONE (06:22)
[2019-08-02] MEDS: Diltiazem CD (24hr) 120 MG CAPSULE PO SCH (10:00)
[2019-08-02] MEDS: Isosorbide MONOnitrate (24 HR) 60 MG TAB.ER.24H PO SCH (10:00)
[2019-08-02] MEDS: Aspirin Enteric Coated 325 MG Tablet PO SCH (10:00)
[2019-08-02] MEDS: Furosemide 20 MG/2 ML VIAL IVP SCH (10:00)
[2019-08-02] MEDS: Methylphenidate HCl 10 MG TABLET PO SCH ×2 (10:00→20:09)
--- NOTE | 2019-08-02 11:05 | Cardiology Consult Note ---
<Tasha Del Cid L - Last Filed: 08/02/19 11:56> Date of Encounter: 08/02/19 Time of Encounter: 11:00 Assessment and Plan (1) Chest pain Current Visit: Yes Status: Acute Patient presented with symptoms concerning for angina. Troponin negative. No acute ECG changes. Patient underwent nuclear stress testing which demonstrated mid-basal anter olateral perfusion defect concerning for reversible ischemia, SDS=8 with TID. Chest pain free upon exam today. Recommend LHC with possible PCI; she is agreeable to proceed. Will make NPO after MN. DNRCC-A; she is agreeable to FULL code during LHC and 24 hours post procedure. Continue current CV medications including asa, statin, BB, and nitrates. NPO after MN. Plan for LHC in AM, 08/03/19. Qualifiers: Chest pain type: chest pain due to myocardial ischemia Ischemic chest pain type: unstable angina pectoris Qualified Code(s): I20.0 - Unstable angina (2) Hx of CABG Current Visit: No Status: Chronic Plan as above. (3) Hypothyroid Current Visit: No Status: Chronic TSH elevated at 31; pt. reports recent increase in Synthroid as outpatient. Qualifiers: Hypothyroidism type: unspecified Qualified Code(s): E03.9 - Hypothyroidism, unspecified Discussion w patient/family: The assessment and plan as outlined above was discussed with the patient and/or family members who expressed understanding and agreement. All questions were answered. Thank you for involving us in the care of your patient. Please call with any questions. The patient will be discussed and reviewed with Dr. Villalobos; changes to be made accordingly. History of Present Illness Consult date: 08/02/19 Requesting physician: Santosh Crandall Consult reason: Abnormal stress test Chief complaint: Chest pain History of present illness: Ms. Hudson is a 73 year old female with PMHx significant of CAD s/p PCI, s/p CABG, HTN, HLD who presented to the ED with complaints of intermittent midsternal chest discomfort that has been ongoing since Wednesday. Symptoms (chest discomfort) worsen with exertion and improve with rest and use of prn NTG tablets. 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 She returned to work on Wednesday and again had to leave early due to worsening chest pain. Associated symptoms include significant weakness and fatigue. She reports worsening weakness over the past several months. Cardiology consulted today for abnormal stress test. Recent CV testing: TTE 03/30/17: LVEF 60-65%, moderate LVDD, normal wall motion C 03/2017: LVEF 65%, s/p 1 of 2 patent bypass grafts, previously stented os tial/prox LCx widely patent; patent TRACY-LAD; SVG-ramus occluded; 30% RCA Past Med Surg Social Fam HX - Past Medical History Attestation: Yes The following information was validated with the patient. Source: patient Medical history: arthritis, cancer, coronary artery disease, GERD, h yperlipidemia, myocardial infarction, osteoporosis, thyroid disease, other Additional medical history: Breast and Bone Cancer Psychiatric history: anxiety, depression, other - Past Surgical History Surgical History: angioplasty/stent, coronary bypass (CABG), other Additional surgical history: R breast lumpectomy and lymph node removal, R MASECTOMY. cardiac stents - Social History Smoking Status: Never smoker Smokeless Tobacco Status: No Alcohol use: none Drug use: none Occupational status: employed - Family History Mother Living Status: Hx Family Cardiac Disorders: Yes (CAD) Father Living Status: Medications and Allergies Aspirin [Ecotrin] 325 mg PO DAILY 03/30/17 [History] Atenolol [Tenormin] 25 mg PO HS 03/30/17 [History] Citalopram [CeleXA] 40 mg PO HS 03/30/17 [History] Methylphenidate HCl [Ritalin] 10 mg PO BID 03/30/17 [History] Nitroglycerin [Nitrostat] 0.4 mg SL PRN PRN 03/30/17 [History] Omeprazole 20 mg PO QAM 03/30/17 [History] Potassium Chloride [Klor-Con 10] 10 meq PO BID 03/30/17 [History] traZODone [TraZODone] 100 mg PO HS PRN 03/30/17 [History] Atorvastatin Calcium [Lipitor] 80 mg PO HS 04/12/19 [History] Ezetimibe 10 mg PO DAILY 04/12/19 [History] Isosorbide MONOnitrate (24 HR) [Imdur] 60 mg PO QAM 04/12/19 [History] Spironolactone 25 mg PO DAILY 04/12/19 [History] Torsemide [Demadex] 20 mg PO DAILY 04/12/19 [History] dilTIAZem HCl [Diltiazem HCl] 120 mg PO DAILY 04/12/19 [History] Levothyroxine Sodium [Levo-T] 88 mcg PO DAILY 07/31/19 [History] LORazepam [Ativan] 0.5 mg PO Q12H PRN 08/01/19 [History] Magnesium Oxide [Magnesium] 400 mg PO BID 08/01/19 [History] Ropinirole HCl [Requip] 3 mg PO HS 08/01/19 [History] Allergy/AdvReac Type Severity Reaction Status Date / Time Penicillins Allergy Rash Verified 08/01/19 11:27 adhesive tape AdvReac Blister Verified 08/01/19 11:27 All Systems Review: The remainder of the systems were reviewed and are negative - Cardiovascular Cardiovascular: as per HPI Physical Examination Vital Signs, Last 4 Hours BP 08/02/19 09:55 131/73 General: Conversant, No Apparent Distress HEENT: Atraumatic, Normocephaly, Mucus Membranes Moist Neck: No JVD, Normal carotid pulses Cardiac: Reg Rate and Rhythm, Normal S1 and S2, No Murmur Lungs: Normal Breath Sounds, No Wheeze, Rales, Rhonchi Neuro: Alert and responsive, No focal deficits noted Abdomen: Soft, Non-Tender Skin: No rashes noted on visualized skin Musculoskeletal: No Chest Wall Tenderness Extremities: No Clubbing, No Cyanosis, No Edema, Normal Pulses Results 08/01/19 00:32 08/02/19 03:43 Lab Results 08/02/19 03:43 Sodium 138 Potassium 3.6 Chloride 105 Carbon Dioxide 24 BUN 19 Creatinine 0.90 Glucose 93 Calcium 8.8 Active Medications Acetaminophen (Tylenol) 650 mg PO Q6HR PRN PRN Reason: Mild Pain/Fever Stop: 01/30/20 14:26 Hydrocodone Bitart/Acetaminophen ([place] 5-325 Mg) 1 tab PO Q6HR PRN PRN Reason: Moderate Pain Stop: 01/30/20 14:26 Aspirin (Aspirin Ec) 325 mg PO DAILY [facility] Stop: 01/31/20 09:01 Last Admin: 08/02/19 10:00 Dose: 325 mg Documented by: Atenolol (Tenormin) 25 mg PO HS [facility] Stop: 01/30/20 21:01 Last Admin: 08/01/19 20:06 Dose: 25 mg Documented by: Atorvastatin Calcium (Lipitor) 80 mg PO [facility] Stop: 01/30/20 21:01 Last Admin: 08/01/19 20:06 Dose: 80 mg Documented by: Citalopram Hydrobromide (Celexa) 40 mg PO [facility] Stop: 01/30/20 21:01 Last Admin: 08/01/19 20:06 Dose: 40 mg Documented by: Diltiazem HCl (Cardizem Cd) 120 mg PO DAILY [facility] Stop: 01/31/20 09:01 Last Admin: 08/02/19 10:00 Dose: 120 mg Documented by: Furosemide (Lasix) 20 mg IVP DAILY [facility] Stop: 01/31/20 09:01 Last Admin: 08/02/19 10:00 Dose: 20 mg Documented by: Heparin Sodium (Porcine) (Heparin) 5,000 unit SQ Q12HCO [facility] Stop: 01/30/20 18:01 Last Admin: 08/02/19 06:03 Dose: 5,000 unit Documented by: Isosorbide Mononitrate (Imdur) 60 mg PO [facility] Stop: 01/31/20 09:01 Last Admin: 08/02/19 10:00 Dose: 60 mg Documented by: Levothyroxine Sodium (Synthroid) 88 mcg PO 0630 [facility] Stop: 01/31/20 06:31 Last Admin: 08/02/19 06:02 Dose: 88 mcg Documented by: Methylphenidate HCl (Ritalin) 10 mg PO BID [facility] Stop: 01/30/20 21:01 Last Admin: 08/02/19 10:00 Dose: 10 mg Documented by: Naloxone HCl (Narcan) 0.4 mg IVP Q2MPRN PRN PRN Reason: SEE COMMENTS Stop: 01/30/20 14:26 Nitroglycerin (Nitroglycerin) 0.4 mg SL Q5MPRN PRN PRN Reason: Chest Pain Stop: 01/30/20 14:30 Omeprazole (Prilosec) 20 mg PO QAM [facility] Stop: 01/31/20 09:01 Last Admin: 08/02/19 10:00 Dose: 20 mg Documented by: Ondansetron HCl (Zofran Odt) 4 mg SL Q8HR PRN PRN Reason: Nausea And Vomiting Stop: 01/30/20 14:26 Ropinirole HCl (Requip) 2 mg PO HS [facility] Stop: 01/31/20 21:01 Last Admin: 08/01/19 20:06 Dose: 2 mg Documented by: Trazodone HCl (Trazodone) 100 mg PO HS PRN PRN Reason: Sleep Stop: 01/30/20 14:30 - Imaging and Cardiology Stress Test: report reviewed Echo: report reviewed Cardiac cath: report reviewed - EKG Interpretation EKG results cardiology: personally reviewed Consult Discharge Plan - Plan Referrals: Manjit Chandra [Primary Care Provider] - 08/09/19 11:30 am <Ten Villalobos - Last Filed: 08/02/19 14:54> Date of Encounter: 08/02/19 - Attending Attestation I have personally performed a face to face evaluation on this patient. I have reviewed and agree with the care plan. History and Exam by me shows: 73-year-old female here with typical angina found to have abnormal stress test with TID, risks benefits and alternatives of a LHC were discussed patient and she agrees to proceed. We will start IV heparin per ACS protocol Assessment and Plan Discussion w patient/family: The assessment and plan as outlined above was discussed with the patient and/or family members who expressed understanding and agreement. All questions were answered. Thank you for involving us in the care of your patient. Please call with any questions. History of Present Illness History of present illness: Ms. Hudson is a 73 year old female All Systems Review: The remainder of the systems were reviewed and are negative Physical Examination Vital Signs, Last 4 Hours Temp Pulse Resp BP Pulse Ox 08/02/19 11:16 98.2 F 69 16 107/66 96 Results 08/01/19 00:32 08/02/19 03:43 Lab Results 08/02/19 03:43 Sodium 138 Potassium 3.6 Chloride 105 Carbon Dioxide 24 BUN 19 Creatinine 0.90 Glucose 93 Calcium 8.8
--- NOTE | 2019-08-02 13:37 | Internal Med Progress Note ---
Hospitalist Progress Note - Encounter Date of Encounter: 08/02/19 Time of Encounter: 12:40 - Subjective Interval History: Ms. Hudson is a 73 year old female with known past medical history of coronary artery disease with stent placement 2 CABG, CAD, HTN, Chronic diastolic CHF, hyperlipidemia, anxiety and depression pt presented to ER with intermittent c hest pain located sub sternally and non-radiating, associated with shortness of breath and generalized weakness. 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 Her serial troponin came back as negative. Since patient is high risk for ACS she did go for nuclear stress test today. She denied any more active chest pain now, however she does complained about still feeling weak and lethargic - Exam Vitals: Temp Pulse Resp BP Pulse Ox 98.2 F 69 16 107/66 96 08/02/19 11:16 08/02/19 11:16 08/02/19 11:16 08/02/19 11:16 08/02/19 11:16 Exam: Gen: Alert, awake, Oriented to time,place and person Chest: Diminished breath sounds B/L, No wheezing, No crackles, No rales Heart: S1S2+ RRR No murmurs Abd: Soft, NT, BS +, No organomegaly Ext: No edema, pulses are palpable, No calf tenderness Neuro : No acute focal neuro deficits noticed Skin: No rash. - Assessment and Plan (1) Chest pain Current Visit: Yes Status: Acute Assessment and Plan: So far serial troponins x 3 were negative She denied any more active CP Cont ASA, Statin, Imdur and BB Since pt is high risk for ACS, she did go for nuclear stress test which came back is abnormal consulted cardiology for further evaluation she may go for [facility] in AM appreciate cardiology recommendations (2) Abnormal stress test Current Visit: Yes Status: Acute (3) CAD (coronary artery disease), [place] coronary artery Current Visit: No Status: Chronic Assessment and Plan: Patient did have a history of a CABG in 1996 and stent placement 2 with last stent placed in 2004 Last cardiac catheter was in 2016 which showed LVEF 65%, s/p 1 of 2 patent bypass grafts, previously stented ostial/prox LCx widely patent; patent TRACY- LAD; SVG-ramus occluded; 30% RCA Continue with aspirin, Imdur, statin and beta oralia Nitroglycerin Glycerin as needed for chest pain (4) Hx of CABG Current Visit: No Status: Chronic Assessment and Plan: as above (5) Diastolic heart failure Current Visit: Yes Status: Acute Assessment and Plan: Mild CHF exacerbation Received IV Lasix initially now improved cont current home meds (6) DVT prophylaxis Current Visit: No Status: Acute (7) Hypothyroid Current Visit: No Status: Chronic - Time Spent with Patient Total time spent is greater than 50% in coordination of care (as documented) at patient's floor/unit and/or counseling patient: Internal Medicine: Result - Labs CBC & Chem 7: 08/01/19 00:32 08/02/19 03:43 Labs: BMP 08/02/19 03:43 Sodium 138 Potassium 3.6 Chloride 105 Carbon Dioxide 24 BUN 19 Creatinine 0.90 Glucose 93 Calcium 8.8 Consult Discharge Plan - Plan Referrals: Manjit Chandra [Primary Care Provider] - 08/09/19 11:30 am (1) Chest pain Qualifiers: Chest pain type: chest pain due to myocardial ischemia Ischemic chest pain type: unstable angina pectoris Qualified Code(s): I20.0 - Unstable angina (3) CAD (coronary artery disease), [place] coronary artery Qualifiers: [place] vs. transplanted heart: [place] heart Associated angina: with unstable angina Qualified Code(s): I25.110 - Atherosclerotic heart disease of [place] coronary artery with unstable angina pectoris (5) Diastolic heart failure Qualifiers: Heart failure chronicity: acute on chronic Qualified Code(s): I50.33 - Acute on chronic diastolic (congestive) heart failure (7) Hypothyroid Qualifiers: Hypothyroidism type: unspecified Qualified Code(s): E03.9 - Hypothyroidism, unspecified
[2019-08-02] MEDS ORDERED: *HR* Heparin 5,000 UNIT/ML VIAL IVP PRN ×2 (14:13)
[2019-08-02] MEDS ORDERED: *HR* Heparin 5,000 UNIT/ML VIAL IVP ONE (14:13)
[2019-08-02] MEDS ORDERED: Heparin 25,000 UNIT/250 ML D5W 25,000 UNIT/250 ML IV.SOLN IVC SCH (14:15)
[2019-08-02 14:48] LABS: Hematocrit 35.8 % (35.3-44.9); Hemoglobin 11.6 g/dL (11.5-15.4); Mean Corpuscular HGB Conc 32.4 g/dL (31.6-35.5); Mean Corpuscular Hemoglobin 27.9 pg (28.0-33.3); Mean Corpuscular Volume 86.1 fL (83.0-100.0); Mean Platelet Volume 8.7 fL (9.4-12.4); Platelet Count 201 K/mcL (140-400); Red Blood Count 4.16 M/mcL (3.82-4.97); Red Cell Distribution Width 14.6 % (11.5-14.5); White Blood Count 9.7 K/mcL (4.3-11.1)
[2019-08-02 14:57] LABS: Heparin anti-factor XA UFH 0.03 IU/mL (0.30-0.70)
[2019-08-02 14:58] LABS: INR 1.2; Prothrombin Time 13.7 Seconds (9.4-12.1)
[2019-08-02] MEDS: rOPINIRole 1 MG TABLET PO SCH (20:01)
[2019-08-03 02:12] LABS: Basophils % 0.3 %; Eosinophils # 0.2 K/mcL (0.0-0.6); Eosinophils % 1.5 %; Hematocrit 35.6 % (35.3-44.9); Hemoglobin 11.2 g/dL (11.5-15.4); Immature Granulocytes % 0.4 % (0-4); Lymphocytes # 2.7 K/mcL (0.6-4.6); Lymphocytes % 23.3 %; Mean Corpuscular HGB Conc 31.5 g/dL (31.6-35.5); Mean Corpuscular Hemoglobin 27.7 pg (28.0-33.3); Mean Corpuscular Volume 87.9 fL (83.0-100.0); Mean Platelet Volume 9.5 fL (9.4-12.4); Monocytes # 0.9 K/mcL (0.0-1.3); Neutrophils # 7.7 K/mcL (1.6-8.9); Platelet Count 209 K/mcL (140-400); Red Blood Count 4.05 M/mcL (3.82-4.97); Red Cell Distribution Width 14.6 % (11.5-14.5); Segmented Neutrophils % 66.5 %; White Blood Count 11.5 K/mcL (4.3-11.1)
[2019-08-03 02:28] LABS: BUN/Creatinine Ratio 17 (6-26); Blood Urea Nitrogen 18 mg/dL (8-23); Calcium 8.5 mg/dL (8.6-10.3); Carbon Dioxide 27 mEq/L (23-29); Chloride 102 mEq/L (98-107); Glucose 105 mg/dL (70-105); Osmolality,Calculated 290 (280-300); Potassium 3.2 mEq/L (3.5-5.1); Sodium 139 mEq/L (136-145); eGFR For African Americans > 60 (> 60); eGFR For Non-African Americans 51 (> 60)
[2019-08-03 05:22] LABS: Magnesium 1.8 mg/dL (1.6-2.6)
[2019-08-03] MEDS: Isosorbide MONOnitrate (24 HR) 60 MG TAB.ER.24H PO SCH (09:04)
[2019-08-03] MEDS: Furosemide 20 MG/2 ML VIAL IVP SCH (09:04)
[2019-08-03] MEDS: Aspirin Enteric Coated 325 MG Tablet PO SCH (09:04)
[2019-08-03] MEDS: Diltiazem CD (24hr) 120 MG CAPSULE PO SCH (09:04)
[2019-08-03] MEDS: Methylphenidate HCl 10 MG TABLET PO SCH (09:04)
--- NOTE | 2019-08-03 09:18 | Event Note ---
Date of Encounter: 08/03/19 Time of Encounter: 09:17 - Cardiology Event Note LHC today for abnormal stress test. R/B/A discussed, agrees to proceed. Pt aware she will be a full code for LHC and 24 hours after. HAS-BLED Score - Score Elderly: Age>65 years Medication usage predisposing to bleeding: Antiplatelet agents, NSAIDs, Anticoagulants Score: 2
[2019-08-03] MEDS ORDERED: 0.9 % Sodium Chloride 1,000 ML ONE ×2 (10:02→10:08)
[2019-08-03] MEDS ORDERED: *HR* Midazolam HCl 2 MG/2 ML VIAL ONE (10:05)
[2019-08-03] MEDS ORDERED: *HR* Heparin 10,000 UNIT/10 ML VIAL ONE (10:09)
[2019-08-03] MEDS ORDERED: Heparin 1,000 UNITS/500 mL 500 ML ONE (10:09)
[2019-08-03] MEDS ORDERED: Iopamidol 125 ML INFUS..BTL ONE ×2 (10:09→10:43)
[2019-08-03] MEDS ORDERED: Nitroglycerin 1,000 MCG/10 ML VIAL IV ONE (10:09)
--- NOTE | 2019-08-03 10:16 | Pre-Sedation Evaluation ---
Pre-sedation evaluation - Pre-sedation checklist Date of procedure: 08/03/19 Procedure: [facility] Recent Vitals: Last Vital Signs Temp 98.4 F 08/03/19 06:44 Pulse 63 08/03/19 06:44 Resp 16 08/03/19 06:44 BP 114/67 08/03/19 06:44 Pulse Ox 94 08/03/19 06:44 H&P (including ROS) documented in medical record: Yes Previous reaction to sedatives/anesthetics: No Dietary Status: NPO after Midnight Airway Assessment: Patient can open mouth completely, TMJ function normal Dentition: dentures removed Possible difficult airway: No ASA Classification *see protocol: CLASS II-Mild systemic disease Plan of Care: Pt appropriate candidate for procedure/moderate/conscious sedation Cardiac Registry (Cardio Only) - Functional Capacity Functional Capacity: >=4 METS with symptoms - Clincal Frailty Scale Clinical Frailty Scale: Well
--- NOTE | 2019-08-03 10:55 | Event Note ---
Date of Encounter: 08/03/19 Time of Encounter: 10:53 - Cardiology Event Note Cath completed LVEF 60% RCA normal LCA-lad occluded at ostium circ patent with no late stent restenosis SVG to circ 100% TRACY to lad patent with collaterals to diag collaterals from distal rca to distal circ. Recommend Medical therapy. If maximized, add ranexa risk factor modification.
--- NOTE | 2019-08-03 11:06 | Invasive Diagnostic Lab Proc ---
Name: Leela Hudson Date of Study: 08/03/2019 Date: 1945 Ht: 61.8in Medical Record#: [id number] Age: 73 Wt: 165.35lb Gender: Female BSA: 1.76 Order #: [id number] BMI: 30.43 Physicians Procedure Physician: Cahn Lan MD Referring MD: Referring MD: Staff Name Position Time In Alyx Elias RN [employer] 10:15 AM Karly Ocampo RT (R) Scrub 10:15 AM Loreta Estevez RT (R) Monitor 10:15 AM Procedures Performed Procedure L HRT ART/GRFT ANGIO Pre-Procedure Checklist Informed consent is complete signed and on chart. H&P is on chart. ID band is on and ID verified with patient. Patient NPO for procedure The procedure was described for the patient and questions were answered. Blood Pressure: 144/67 ECG is on chart. Rhythm: NSR Plan of Care Patient will tolerate the procedure without complications. Adequate level of comfort will be maintained. Hemodynamics will remain stable Patient will recover from procedure without complications. Respiratory function will be maintained. Cardiac rhythm will remain stable. Patient temperature will be maintained. Patient and/or family have verbalized understanding of the procedure. Patient Education Chief Complaint/Reason for Test: Cardiac Cath Developmental Category: Geriatric (65+ years) Developmentally Appropriate for Age: Yes Learning Barriers: None Education Needs: Procedure Education Method: Verbal Information Taught: Cardiac Cath Educational Evaluation: Able to repeat information Intravenous Access Time IV Size Location DC'd Fluid/Drip Rate Units RN 10:27 AM Started with 20g 1 1/4" Lt Arm 0.9NaCl 50 ml/hr Alyx Elias RN Allergies Penicillins adhesive tape Vital Signs Time BP (mmHg) HR (bpm) O2 Sat. RR (bpm) LOC 114 / 67 63 94 % 16 5 = Fully awake and oriented or at pre-proc level 10:29 AM / % 5 = Fully awake and oriented or at pre-proc level 10:42 AM / % 4 = Oriented but drowsy 10:27 AM 166 / 43 69 97 % 16 10:33 AM 145 / 64 67 97 % 16 10:37 AM 134 / 64 71 97 % 16 10:43 AM 134 / 57 69 98 % 16 10:47 AM 130 / 64 71 95 % 16 10:52 AM 137 / 72 % 10:42 AM / % 5 = Fully awake and oriented or at pre-proc level Procedural Medications Time Medication Dose Units Method Given By 10:28 AM Versed 2 mg Intravenous Alyx Elias RN 10:30 AM Lidocaine 2% 10 ml Subcutaneous Chan Lan MD ASA Classification: CLASS II- Mild systemic disease (i.e. well-controlled diabetes, hypertension, asthma, cigarette smoking) Denisse Score Preprocedure Postprocedure Activity 2- Moves 4 extremities sustained head lift Activity 2- Moves 4 extremities sustained head lift Circulation 2- SBP +/= 20 points of pre-anesthetic level Circulation 2- SBP +/= 20 points of pre-anesthetic level Consciousness 2- Awake and alert oriented x 3 Consciousness 2- Awake and alert oriented x 3 O2 Saturation 2- Able to maintain O2 satruation of 92% on room air O2 Saturation 2- Able to maintain O2 satruation of 92% on room air Respiratory 2- Able to deep breathe and cough well Respiratory 2- Able to deep breathe and cough well Total Score 10 Total Score 10 Contrast Agent: Isovue Diagnostic Contrast: 100 ml Total Contrast: 100 ml Fluoro Dose: 16 mGy Procedure Log Time Note Enter By 10:15 AM Pt arrived to [facility] 2 at 10:15 [email or web address] 10:15 AM Alyx Elias RN Position: Electric[employer] Ship Time in: 10:15 [email or web address] 10:15 AM Karly Ocampo RT (R) Position: Scrub Time in: 10:15 [email or web address] 10:15 AM Loreta Estevez RT (R) Position: Monitor Time in: 10:15 oummers 10:15 AM Patient charges- Angio tray pack, Navilyst 3mm J, Pulse Oximetry and ACIST tubing and transducer [email or web address] 10:15 AM Case Delayed No [email or web address] 10:16 AM Physician arrived 10:15 oummers 10:16 AM Meet and greet completed [email or web address] 10:16 AM Sign in performed according to hospital policy. Informed consent was obtained. [email or web address] 10:16 AM CathStat 10:18 AM Procedure start 10:18 [email or web address] 10:22 AM Hair removed from procedure site in procedure lab using clippers. Bilateral groin prepped with Chloraprep by Loreta Estevez RT (R), then patient was draped. Skin intact. twilson 10:24 AM Vitals capture started with the following parameters, Patient=Adult, Interval=5 min, Initial Xnvhgpqj=716 mmHg, Deflation Rate=3 mmHg, Cuff placed on Right Arm 10:26 AM Vitals capture started with the following parameters, Patient=Adult, Interval=5 min, Initial Iqqsuddy=277 mmHg, Deflation Rate=3 mmHg, Cuff placed on Right Arm 10:27 AM Recorded ECG: HR=69 Condition=Condition 1 10:27 AM HR=69 bpm, YBER=167/43 mmhg, SpO2=97.0 %, Resp=16 B/min 10: AM Time: Versed 2 mg Intravenous Given by Alyx Elias RN twilson 10: AM Time: Patient comfortable and pain free: Yes twilson 10: AM Time: LOC: 5 = Fully awake and oriented or at pre-proc level twilson 10:29 AM Time out was performed according to hospital policy. Conscious sedation and anesthesia was achieved (see medication log with in this report above) twilson 10:31 AM Time: 30 10 ml Lidocaine 2% to right groin Subcutaneous Given by Chan Lan MD twilson 10:31 AM Pressure channel 2 zeroed. 10:31 AM Case Delayed no twilson 10:31 AM ASA Class CLASS II- Mild systemic disease (i.e. well-controlled diabetes, hypertension, asthma, cigarette smoking) twilson 10:32 AM Access obtained by percutaneous puncture. 6Fr 10cm [place] sheath placed in right Femoral artery. [id number] twilson 10:32 AM 6Fr FL 4 catheter inserted over the wire DNC twilson 10:33 AM Recorded Pressure: Ao, HR=71, Condition=Condition 1 (Aorta) Ao 119/57/82 10:33 AM HR=67 bpm, DYOO=954/64 mmhg, SpO2=97.0 %, Resp=16 B/min 10:33 AM Recorded Pressure: Ao, HR=68, Condition=Condition 1 (Aorta) Ao 102/44/65 10:33 AM Wire removed, intact. twilson 10:33 AM LCA angiography performed in multiple views. twilson 10:34 AM Wire reinserted. twilson 10:34 AM Catheter removed twilson 10:34 AM 6Fr FR 4 catheter inserted over the wire DNC twilson 10:35 AM Recorded Pressure: Ao, HR=69, Condition=Condition 1 (Aorta) Ao 96/47/66 10:35 AM Wire removed twilson 10:35 AM RCA angiography performed in multiple views. twilson 10:36 AM Recorded Pressure: Ao, HR=69, Condition=Condition 1 (Aorta) Ao 83/39/56 10:37 AM HR=71 bpm, MWZA=759/64 mmhg, SpO2=97.0 %, Resp=16 B/min 10:39 AM Left MARLENE to the LAD angio performed in multiple views. twilson 10:42 AM Time: 10:42 Patient comfortable and pain free: Yes twilson 10:42 AM Time: 10:42LOC: 4 = Oriented but drowsy twilson 10:42 AM Wire reinserted. twilson 10:42 AM Catheter removed twilson 10:43 AM HR=69 bpm, SASO=290/57 mmhg, SpO2=98.0 %, Resp=16 B/min 10:43 AM 6Fr RCB Runway guide catheter advanced over wire. twilson 10:43 AM Wire removed twilson 10:44 AM RCA angiography performed in multiple views. twilson 10:44 AM Wire reinserted. twilson 10:44 AM Catheter removed twilson 10:45 AM 6Fr Pigtail catheter inserted over the wire DN twilson 10:45 AM Catheter crossed the aortic valve and was selectively placed in the left ventricle. Pressures recorded on pullback for left heart catheterization. twilson 10:45 AM Wire removed twilson 10:45 AM Recorded Pressure: LV, HR=68, Condition=Condition 1 (Left Ventricle) LV 112/3/8 10:45 AM Recorded Pressure: LV, HR=69, Condition=Condition 1 (Left Ventricle) LV 111/1/7 10:45 AM Recorded Pressure: LV, Ao, HR=70, Condition=Condition 1 (Left Ventricle) LV 110/-7/6, (Aorta) Ao 93/30/59 10:45 AM Bolus angiogram of left Ventricle complete: 10 ml/sec for a total of 10 mls twilson 10:45 AM Wire reinserted. twilson 10:46 AM Catheter removed twilson 10:46 AM Bolus angiogram of right Femoral complete: 2 ml/sec for a total of 4 mls twilson 10:46 AM Procedure completed at 10:46 08/03/2019 twilson 10:46 AM Did you address WILLARD flow and Dominance? YesCoronary Dominance: right twilson 10:46 AM Isovue 370 - 125ml,1 Bottle(s) used. twilson 10:46 AM Arterial sheath pulled, Perclose closure device used and was Successful S/N. twilson 10:47 AM HR=71 bpm, NCBC=254/64 mmhg, SpO2=95.0 %, Resp=16 B/min 10:49 AM Sign out completed: Radiation Dose 159.27 mGy, 16.5 Gy/cm2 Fluoro Time: 5.0 Isovue 370 - 200ml contrast 100 ml given by Chan Lan MD. Complications: None. 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 Sedation minutes 20. Cardiac Rehab Consult needed: No. Confirmed administered medications: Yes twilson 10:49 AM Estimated Blood Loss: minimal twilson 10:49 AM Post ECG NSR twilson 10:49 AM Post Blood Pressure 130/64 twilson 10:49 AM 10:49 Post Pulses Bilateral DP & PT 1+ twilson 10:49 AM Information taught Cardiac Cath and Perclose twilson 10:49 AM Education needs Procedure, Plan of Care, and Responsibilities of Patient in Care twilson 10:49 AM Learning barriers :None twilson 10:49 AM Education Methods Verbal twilson 10:49 AM Education evaluation Able to repeat information twilson 10:49 AM Site status No bleeding/ No Hematoma - Rt Groin as reported by Karly Ocampo RT (R) at 10:49 twilson 10:49 AM Opsite applied twilson 10:50 AM Family placed in consult room. twilson 10:52 AM BPFV=126/72 mmhg 10:52 AM Lesion found in Proximal LAD. Pre Stenosis: 100 Pre WILLARD Flow: twilson 10:53 AM Lesion found in Proximal Circumflex. Pre Stenosis: 100 Pre WILLARD Flow: twilson 10:53 AM Lesion found in Mid Circumflex. Pre Stenosis: 100 Pre WILLARD Flow: twilson 10:53 AM Proximal Left Anterior Descending Coronary Artery with 100% stenosis. If graft is supplying this territory, 0 % stenosis. twilson 10:53 AM Circumflex, Obtuse Marginal, Left Posterior Descending, and Left Posterolateral Coronary Arteries with 10 % stenosis. If graft is supplying this area, 0 % stenosis twilson 10:57 AM Time: 10:42LOC: 5 = Fully awake and oriented or at pre-proc level twilson 10:57 AM Time: 10:42 Patient comfortable and pain free: Yes twilson 11:00 AM Report given to Sharon DAVIES Pt taken to 3B Room #33. 11:00 twilson 11:00 AM Patient out of room: 11:00 twilson Complications Complication None Hemodynamics Pressures Site Systolic/A Wave Diastolic/V Wave Mean AO 119 57 82 AO 102 44 65 AO 96 47 66 AO 83 39 56 LV 112 3 8 LV 111 1 7 LV 110 -7 6 AO 93 30 59 Post Procedure Information Blood Pressure: 130/64 mmHg Rhythm: NSR Post procedural instructions were given Closure Device Time Device Success/Fail 08/03/2019 10:53:00 AM Perclose ProGlide Successful Site Checks Time Location Status Staff Sheath In? Note 10:49 AM Rt Groin No bleeding/ No Hematoma Karly Ocampo RT (R) Pulses Time Site Pre-Procedure Post-Procedure Note 08/03/2019 10:27:00 AM Bilateral DP & PT 1+ 10:49:00 AM Bilateral DP & PT 1+ Updated by Loreta Estevez RT (R) on 08/03/2019 11:01:10 AM electronically signed on 08/03/2019 11:01:45 AM with status of Final
--- NOTE | 2019-08-03 13:24 | Discharge Summary ---
- NOTES TO OUTPATIENT PROVIDER Notes to Outpatient Provider: f/u with PCP in one week. f/u with Cardiology in 1-2 weeks. Medication changes : Increased your Imdur to 90mg PO Daily.. Added Ranexa 500mg PO BID. Date of Encounter: 08/03/19 Time of Encounter: 13:20 - Discharge Diagnosis (1) Chest pain Priority: Primary Status: Acute Qualifiers: Chest pain type: chest pain due to myocardial ischemia Ischemic chest pain type: unstable angina pectoris Qualified Code(s): I20.0 - Unstable angina (2) Abnormal stress test Priority: Primary Status: Acute (3) CAD (coronary artery disease), [place] coronary artery Priority: Secondary Status: Chronic Qualifiers: [place] vs. transplanted heart: [place] heart Associated angina: with unstable angina Qualified Code(s): I25.110 - Atherosclerotic heart disease of [place] coronary artery with unstable angina pectoris (4) Hx of CABG Priority: Secondary Status: Chronic (5) Diastolic heart failure Priority: Secondary Status: Acute Qualifiers: Heart failure chronicity: acute on chronic Qualified Code(s): I50.33 - Acute on chronic diastolic (congestive) heart failure (6) DVT prophylaxis Priority: Secondary Status: Acute (7) Hypothyroid Priority: Secondary Status: Chronic Qualifiers: Hypothyroidism type: unspecified Qualified Code(s): E03.9 - Hypothyroidism, unspecified Hospital course: Ms. Hudson is a 73 year old female with known past medical history of coronary artery disease with stent placement 2 CABG, CAD, HTN, Chronic diastolic CHF, hyperlipidemia, anxiety and depression pt presented to ER with intermittent chest pain located sub sternally and non-radiating, associated with shortness of breath and generalized weakness. She was admitted in the hospital placed on media monitor. Her serial troponin came back as negative. Since patient is high risk for ACS she did go for nuclear stress test which came back as abnormal with Small apical lateral infarct with moderate mid-basal anterolateral and inferolateral ischemia on perfusion study. She was evaluated by cardiology who did LHC today.. LHC showed LVEF 60%, RCA normal, LCA-lad occluded at ostium, circ patent with no late stent restenosis SVG to circ 100% and TRACY to lad patent with collaterals to diag. Cardiology recommend medical management with adding Ranexa [employer] Imdur ot 90 mg. She denied any more CP now. So will d/c her home in stable condition today. - Time Spent with Patient Total time spent providing and/or coordinating discharge services: - Discharge Medications Prescriptions: New Isosorbide MONOnitrate (24 HR) [Imdur] 90 mg PO QAM #90 tab.er.24h Ranolazine [Ranexa] 500 mg PO BID #60 tab.er.12h Continued traZODone [TraZODone] 100 mg PO HS PRN PRN Reason: Sleep Methylphenidate HCl [Ritalin] 10 mg PO BID Potassium Chloride [Klor-Con 10] 10 meq PO BID Omeprazole 20 mg PO QAM Nitroglycerin [Nitrostat] 0.4 mg SL PRN PRN PRN Reason: Chest Pain Citalopram [CeleXA] 40 mg PO HS Atenolol [Tenormin] 25 mg PO HS Aspirin [Ecotrin] 325 mg PO DAILY Torsemide [Demadex] 20 mg PO DAILY dilTIAZem HCl [Diltiazem HCl] 120 mg PO DAILY Spironolactone 25 mg PO DAILY Atorvastatin Calcium [Lipitor] 80 mg PO HS Ezetimibe 10 mg PO DAILY Levothyroxine Sodium [Levo-T] 88 mcg PO DAILY LORazepam [Ativan] 0.5 mg PO Q12H PRN PRN Reason: Anxiety Magnesium Oxide [Magnesium] 400 mg PO BID Ropinirole HCl [Requip] 3 mg PO HS Discontinued Isosorbide MONOnitrate (24 HR) [Imdur] 60 mg PO QAM Home Medications: Aspirin [Ecotrin] 325 mg PO DAILY 03/30/17 [History] Atenolol [Tenormin] 25 mg PO HS 03/30/17 [History] Citalopram [CeleXA] 40 mg PO HS 03/30/17 [History] Methylphenidate HCl [Ritalin] 10 mg PO BID 03/30/17 [History] Nitroglycerin [Nitrostat] 0.4 mg SL PRN PRN 03/30/17 [History] Omeprazole 20 mg PO QAM 03/30/17 [History] Potassium Chloride [Klor-Con 10] 10 meq PO BID 03/30/17 [History] traZODone [TraZODone] 100 mg PO HS PRN 03/30/17 [History] Atorvastatin Calcium [Lipitor] 80 mg PO HS 04/12/19 [History] Ezetimibe 10 mg PO DAILY 04/12/19 [History] Spironolactone 25 mg PO DAILY 04/12/19 [History] Torsemide [Demadex] 20 mg PO DAILY 04/12/19 [History] dilTIAZem HCl [Diltiazem HCl] 120 mg PO DAILY 04/12/19 [History] Levothyroxine Sodium [Levo-T] 88 mcg PO DAILY 07/31/19 [History] LORazepam [Ativan] 0.5 mg PO Q12H PRN 08/01/19 [History] Magnesium Oxide [Magnesium] 400 mg PO BID 08/01/19 [History] Ropinirole HCl [Requip] 3 mg PO HS 08/01/19 [History] Isosorbide MONOnitrate (24 HR) [Imdur] 90 mg PO QAM #90 tab.er.24h 08/03/19 [Rx] Ranolazine [Ranexa] 500 mg PO BID #60 tab.er.12h 08/03/19 [Rx] Allergies/Adverse Reactions: Allergy/AdvReac Type Severity Reaction Status Date / Time Penicillins Allergy Rash Verified 08/01/19 11:27 adhesive tape AdvReac Blister Verified 08/01/19 11:27 Date of admission: 07/31/19 13:43 Primary care physician: Manjit Chandra Consults: 08/01/19 08:43 Consult to Nurse Navigator [CONS] Routine Comment: CHF 08/02/19 10:42 Consult to Cardiology [CONS] Routine Comment: Consulting Provider: Cardiology Yadira Reason for Consult: Abnormal stress test Time Notified: 10:42 Call Completed: Yes - Constitutional Vitals: Temp Pulse Resp BP Pulse Ox 97.8 F 72 18 98/51 96 08/03/19 11:36 08/03/19 12:48 08/03/19 12:48 08/03/19 12:48 08/03/19 12:48 General appearance: Present: A&O X 3, no acute distress, answers questions appropriately Exam: Gen: Alert, awake, Oriented to time,place and person Chest: Diminished breath sounds B/L, No wheezing, No crackles, No rales Heart: S1S2+ RRR No murmurs Abd: Soft, NT, BS +, No organomegaly Ext: No edema, pulses are palpable, No calf tenderness Neuro : No acute focal neuro deficits noticed Skin: No rash. - Patient Status Disposition: Home, Self-Care Condition: Good Overall status at discharge: patient is back to baseline - Discharge Instructions Follow Up With: Manjit Chandra [Primary Care Provider] - 08/09/19 11:30 am Kt Colin, PUBLICITY CONSULTANT [Advanced Practice Nurse] - Forms: ED Satisfaction Letter - Diet and Activity Activity: increase activity as tolerated Diet: low salt diet
[2019-08-03 14:58] VITALS: BP 106/56
[2019-08-03] MEDS ORDERED: Ranolazine 500 MG TAB.ER.12H PO SCH (21:00)
[2019-08-04] MEDS ORDERED: Isosorbide MONOnitrate (24 HR) 30 MG TAB.ER.24H PO SCH (09:00)
[2019-08-04] MEDS ORDERED: Isosorbide MONOnitrate (24 HR) 30 MG TAB.ER.24H PO ONE (11:01)
== END 2019-08-03 15:15 | disposition home or self-care (01) ==
LOC: 3BNU 12:02 → EMEROOARM 12:02 → SUATTDRO 13:43 → 3BNU 14:32
PROVIDERS: ADMIT Internal Medicine; ATTEND Family Medicine

== ENCOUNTER 2020-08-10 21:01 | Observation (INO) ==
[2020-08-10 22:46] LABS: Basophils % 0.4 %; Eosinophils % 0.4 %; Hematocrit 38.8 % (35.3-44.9); Hemoglobin 12.3 g/dL (11.5-15.4); Immature Granulocytes % 0.6 % (0-4); Lymphocytes # 2.2 K/mcL (0.6-4.6); Lymphocytes % 20.8 %; Mean Corpuscular HGB Conc 31.7 g/dL (31.6-35.5); Mean Corpuscular Volume 91.5 fL (83.0-100.0); Mean Platelet Volume 9.2 fL (9.4-12.4); Monocytes # 0.9 K/mcL (0.0-1.3); Monocytes % 8.8 %; Neutrophils # 7.1 K/mcL (1.6-8.9); Platelet Count 227 K/mcL (140-400); Red Blood Count 4.24 M/mcL (3.82-4.97); Red Cell Distribution Width 16.2 % (11.5-14.5); White Blood Count 10.3 K/mcL (4.3-11.1)
[2020-08-10 22:50] LABS: VBG Ionized Calcium 1.23 mmol/L (1.15-1.35)
[2020-08-10 22:57] LABS: INR 1.3; Prothrombin Time 15.3 Seconds (9.4-12.1)
[2020-08-10] MEDS ORDERED: Isovue-370 500 ML BOTTLE IVP ONE (23:17)
[2020-08-10 23:18] LABS: Alanine Aminotransferase 9 Units/L (7-52); Albumin 4.3 g/dL (3.5-5.7); Albumin/Globulin Ratio 1.5 (1.1-2.2); Alkaline Phosphatase 62 Units/L (34-104); Aspartate Amino Transferase 12 Units/L (13-39); BUN/Creatinine Ratio 17 (6-26); Bilirubin,Total 0.5 mg/dL (0.3-1.0); Blood Urea Nitrogen 32 mg/dL (8-23); Calcium 9.9 mg/dL (8.6-10.3); Carbon Dioxide 18 mEq/L (23-29); Chloride 104 mEq/L (98-107); Creatine Kinase 23 Units/L (30-223); Globulin 2.8 g/dL (2.4-3.5); Glucose 91 mg/dL (70-105); Osmolality,Calculated 284 (280-300); Phosphorous 4.3 mg/dL (2.7-4.5); Sodium 134 mEq/L (136-145); Total Protein 7.1 g/dL (6.4-8.9); Troponin I < 0.03 ng/mL (< 0.04); eGFR For African Americans 31 (> 60); eGFR For Non-African Americans 26 (> 60)
[2020-08-10 23:30] LABS: Thyroid Stimulating Hormone 0.117 mcIU/mL (0.340-5.600)
[2020-08-10] MEDS ORDERED: *HR* Heparin 5,000 UNIT/ML VIAL IVP PRN ×2 (23:43)
[2020-08-10] MEDS ORDERED: *HR* Heparin 5,000 UNIT/ML VIAL IVP ONE (23:43)
[2020-08-10] MEDS ORDERED: Heparin 25,000UNIT/250ML 1/2NS 25,000 UNIT/250 ML IV.SOLN IVC SCH (23:45)
[2020-08-11 00:19] LABS: Adenovirus Not Detected (Not Detect); Bordetella Pertussis Not Detected (Not Detect); Chlamydophila pneumoniae Not Detected (Not Detect); Coronavirus 229E Not Detected (Not Detect); Coronavirus HKU1 Not Detected (Not Detect); Coronavirus NL63 Not Detected (Not Detect); Coronavirus OC43 Not Detected (Not Detect); Human Metapneumovirus Not Detected (Not Detect); Human Rhinovirus/Enterovirus Not Detected (Not Detect); Influenza A Subtype 2009 H1 Not Detected (Not Detect); Influenza B Not Detected (Not Detect); Mycoplasma pneumoniae Not Detected (Not Detect); Parainfluenza Virus 1 Not Detected (Not Detect); Parainfluenza Virus 2 Not Detected (Not Detect); Parainfluenza Virus 3 Not Detected (Not Detect); Parainfluenza Virus 4 Not Detected (Not Detect); Respiratory Syncytial Virus Not Detected (Not Detect); SARS-CoV-2 Not Detected (Not Detect)
[2020-08-11 00:55] LABS: Heparin anti-factor XA UFH 0.06 IU/mL (0.30-0.70); INR 1.4; Prothrombin Time 15.9 Seconds (9.4-12.1)
[2020-08-11 00:58] LABS: Activated Partial Thrombo Time 30.1 Seconds (26.0-36.0)
[2020-08-11 03:09] LABS: Bilirubin,Urine Negative (Negative); Blood,Urine Negative (Negative); Clarity,Urine Clear (Clear); Color,Urine Yellow (Yellow); Glucose,Urine (UA) Normal (Normal); Ketones,Urine Trace mg/dL (Negative); Leukocyte Esterase,Urine Negative (Negative); Nitrite,Urine Negative (Negative); PH,Urine 5.5 pH Units (5.0-8.0); Protein,Urine 30 mg/dL (Neg-Trace); Specific Gravity,Urine >= 1.030 (1.010-1.025); Urobilinogen,Urine Normal (Normal)
[2020-08-11 03:15] LABS: Bacteria,Urine Few per hpf (None-Few); Hyaline Casts,Urine Many per lpf (None Seen); Mucus,Urine Few per lpf (None-Few); RBC,Urine 0-3 per hpf (0-3); Squamous Epithelial Cell,Urine Few per hpf (None-Few)
[2020-08-11] MEDS ORDERED: Naloxone 0.4 MG/ML INJ IVP PRN (05:28)
[2020-08-11] MEDS: 0.9 % Sodium Chloride 1,000 ML IVC SCH ×2 (06:26→13:18)
[2020-08-11] MEDS ORDERED: Nitroglycerin 0.4 MG TAB.SUBL SL PRN (12:16)
[2020-08-11 13:15] LABS: Potassium 3.3 mEq/L (3.5-5.1)
[2020-08-11] MEDS: Aspirin Enteric Coated 325 MG Tablet PO SCH (13:16)
[2020-08-11] MEDS: Isosorbide MONOnitrate (24 HR) 30 MG TAB.ER.24H PO SCH (13:16)
[2020-08-11] MEDS ORDERED: traZODone 50 MG TABLET PO PRN (16:01)
[2020-08-11] MEDS ORDERED: Ondansetron 4 MG/2 ML VIAL IVP PRN (18:07)
[2020-08-11] MEDS: Ranolazine 500 MG TAB.ER.12H PO SCH (19:25)
[2020-08-11] MEDS: Methylphenidate HCl 10 MG TABLET PO SCH (19:26)
[2020-08-11] MEDS: Magnesium Oxide 400 MG TABLET PO SCH (19:27)
[2020-08-11] MEDS ORDERED: atenoloL 25 MG TABLET PO SCH (21:00)
[2020-08-12 06:55] LABS: Hematocrit 32.8 % (35.3-44.9); Mean Corpuscular HGB Conc 31.4 g/dL (31.6-35.5); Mean Corpuscular Hemoglobin 29.8 pg (28.0-33.3); Mean Corpuscular Volume 94.8 fL (83.0-100.0); Mean Platelet Volume 9.3 fL (9.4-12.4); Platelet Count 170 K/mcL (140-400); Red Blood Count 3.46 M/mcL (3.82-4.97); Red Cell Distribution Width 16.3 % (11.5-14.5); White Blood Count 8.6 K/mcL (4.3-11.1)
[2020-08-12 06:56] LABS: Hemoglobin 10.3 g/dL (11.5-15.4)
[2020-08-12 07:42] LABS: Calcium 8.7 mg/dL (8.6-10.3); Potassium 3.8 mEq/L (3.5-5.1)
[2020-08-12] MEDS: Methylphenidate HCl 10 MG TABLET PO SCH (07:49)
[2020-08-12] MEDS: Magnesium Oxide 400 MG TABLET PO SCH (07:49)
[2020-08-12] MEDS: Isosorbide MONOnitrate (24 HR) 30 MG TAB.ER.24H PO SCH (07:49)
[2020-08-12] MEDS: Aspirin Enteric Coated 325 MG Tablet PO SCH (07:50)
[2020-08-12] MEDS: Ranolazine 500 MG TAB.ER.12H PO SCH (07:50)
[2020-08-12 11:59] VITALS: BP 110/58
== END 2020-08-12 16:27 | disposition home health service (06) ==
LOC: EMEROOARM 21:01 → 2ANU 21:01 → SUATTDRO 08-11 02:49 → 2ANU 08-11 03:28
PROVIDERS: ADMIT Student in an Organized Health Care Education/Training Program; ATTEND Family Medicine

== ENCOUNTER 2020-08-21 13:46 | Observation (INO) ==
[2020-08-21] MEDS ORDERED: *HR* FentaNYL (PF) 100 MCG/2 ML VIAL IVP ONE (13:58)
[2020-08-21] MEDS ORDERED: Ondansetron 4 MG/2 ML VIAL IVP ONE (13:58)
[2020-08-21 14:36] LABS: Basophils % 0.2 %; Eosinophils % 0.1 %; Hematocrit 38.4 % (35.3-44.9); Hemoglobin 11.9 g/dL (11.5-15.4); Immature Granulocytes % 0.6 % (0-4); Lymphocytes # 1.6 K/mcL (0.6-4.6); Lymphocytes % 15.8 %; Mean Corpuscular Hemoglobin 29.4 pg (28.0-33.3); Mean Corpuscular Volume 94.8 fL (83.0-100.0); Mean Platelet Volume 9.8 fL (9.4-12.4); Monocytes % 9.7 %; Neutrophils # 7.6 K/mcL (1.6-8.9); Platelet Count 194 K/mcL (140-400); Red Blood Count 4.05 M/mcL (3.82-4.97); Segmented Neutrophils % 73.6 %; White Blood Count 10.4 K/mcL (4.3-11.1)
[2020-08-21 14:56] LABS: BUN/Creatinine Ratio 18 (6-26); Blood Urea Nitrogen 25 mg/dL (8-23); Calcium 9.3 mg/dL (8.6-10.3); Carbon Dioxide 21 mEq/L (23-29); Chloride 107 mEq/L (98-107); Glucose 104 mg/dL (70-105); Osmolality,Calculated 291 (280-300); Potassium 3.9 mEq/L (3.5-5.1); Sodium 138 mEq/L (136-145); Troponin I < 0.03 ng/mL (< 0.04); eGFR For African Americans 45 (> 60); eGFR For Non-African Americans 37 (> 60)
[2020-08-21] MEDS ORDERED: 0.9 % Sodium Chloride 1,000 ML IVC ONE (15:32)
[2020-08-21 15:42] LABS: Bilirubin,Urine Negative (Negative); Blood,Urine Trace (Negative); Clarity,Urine Clear (Clear); Color,Urine Yellow (Yellow); Glucose,Urine (UA) Normal (Normal); Granular Casts,Urine Few per lpf (None Seen); Hyaline Casts,Urine Many per lpf (None Seen); Ketones,Urine Negative (Negative); Leukocyte Esterase,Urine Negative (Negative); Mucus,Urine Few per lpf (None-Few); Nitrite,Urine Negative (Negative); PH,Urine 5.5 pH Units (5.0-8.0); Protein,Urine 30 mg/dL (Neg-Trace); RBC,Urine 0-3 per hpf (0-3); Specific Gravity,Urine 1.024 (1.010-1.025); Transitional Epi Cells,Urine Few per hpf (None-Few); Urobilinogen,Urine Normal (Normal); WBC,Urine 0-3 per hpf (0-3)
[2020-08-21] MEDS ORDERED: Ondansetron 4 MG/2 ML VIAL IVP PRN (16:06)
[2020-08-21] MEDS ORDERED: Naloxone 0.4 MG/ML INJ IVP PRN (16:06)
[2020-08-21] MEDS ORDERED: Acetaminophen 325 MG TABLET PO PRN (16:32)
[2020-08-21] MEDS: *HR* Heparin 5,000 UNIT/ML VIAL SQ SCH (17:54)
[2020-08-21] MEDS: Ringers Solution, Lactated 1,000 ML IVC SCH (17:55)
[2020-08-21] MEDS: *HR* HYDROcodone/Acet 5/325 mg TABLET PO PRN (18:01)
[2020-08-22 01:58] LABS: Basophils % 0.2 %; Eosinophils # 0.1 K/mcL (0.0-0.6); Eosinophils % 0.9 %; Hematocrit 33.9 % (35.3-44.9); Immature Granulocytes % 0.5 % (0-4); Lymphocytes # 2.4 K/mcL (0.6-4.6); Lymphocytes % 27.2 %; Mean Corpuscular HGB Conc 30.4 g/dL (31.6-35.5); Mean Corpuscular Hemoglobin 29.2 pg (28.0-33.3); Mean Platelet Volume 9.9 fL (9.4-12.4); Monocytes # 0.9 K/mcL (0.0-1.3); Monocytes % 10.6 %; Neutrophils # 5.3 K/mcL (1.6-8.9); Platelet Count 152 K/mcL (140-400); Red Blood Count 3.53 M/mcL (3.82-4.97); Red Cell Distribution Width 15.1 % (11.5-14.5); Segmented Neutrophils % 60.6 %; White Blood Count 8.8 K/mcL (4.3-11.1)
[2020-08-22 02:00] LABS: Hemoglobin 10.3 g/dL (11.5-15.4)
[2020-08-22 02:16] LABS: BUN/Creatinine Ratio 19 (6-26); Blood Urea Nitrogen 18 mg/dL (8-23); Calcium 8.2 mg/dL (8.6-10.3); Carbon Dioxide 19 mEq/L (23-29); Chloride 113 mEq/L (98-107); Glucose 81 mg/dL (70-105); Osmolality,Calculated 289 (280-300); Potassium 3.6 mEq/L (3.5-5.1); Sodium 139 mEq/L (136-145); eGFR For African Americans > 60 (> 60); eGFR For Non-African Americans 58 (> 60)
[2020-08-22] MEDS: *HR* Heparin 5,000 UNIT/ML VIAL SQ SCH ×2 (05:51→17:12)
[2020-08-22] MEDS: Ringers Solution, Lactated 1,000 ML IVC SCH (07:26)
[2020-08-22] MEDS: *HR* HYDROcodone/Acet 5/325 mg TABLET PO PRN ×3 (07:33→20:21)
[2020-08-22] MEDS ORDERED: Nitroglycerin 0.4 MG TAB.SUBL SL PRN (11:47)
[2020-08-22] MEDS ORDERED: traZODone 50 MG TABLET PO PRN (11:47)
[2020-08-22] MEDS: atenoloL 25 MG TABLET PO SCH (20:21)
[2020-08-22] MEDS: Magnesium Oxide 400 MG TABLET PO SCH (20:21)
[2020-08-22] MEDS: Methylphenidate HCl 10 MG TABLET PO SCH (20:21)
[2020-08-22] MEDS: Ranolazine 500 MG TAB.ER.12H PO SCH (20:22)
[2020-08-23] MEDS: *HR* HYDROcodone/Acet 5/325 mg TABLET PO PRN ×2 (03:29→21:17)
[2020-08-23 04:17] LABS: Basophils % 0.3 %; Eosinophils # 0.1 K/mcL (0.0-0.6); Eosinophils % 1.1 %; Hematocrit 36.4 % (35.3-44.9); Immature Granulocytes % 0.6 % (0-4); Lymphocytes # 2.3 K/mcL (0.6-4.6); Lymphocytes % 20.4 %; Mean Corpuscular HGB Conc 30.2 g/dL (31.6-35.5); Mean Corpuscular Hemoglobin 28.7 pg (28.0-33.3); Mean Platelet Volume 9.9 fL (9.4-12.4); Monocytes % 8.5 %; Neutrophils # 7.8 K/mcL (1.6-8.9); Platelet Count 185 K/mcL (140-400); Red Blood Count 3.83 M/mcL (3.82-4.97); Segmented Neutrophils % 69.1 %; White Blood Count 11.3 K/mcL (4.3-11.1)
[2020-08-23 04:32] LABS: BUN/Creatinine Ratio 18 (6-26); Blood Urea Nitrogen 14 mg/dL (8-23); Calcium 8.9 mg/dL (8.6-10.3); Carbon Dioxide 19 mEq/L (23-29); Chloride 113 mEq/L (98-107); Glucose 74 mg/dL (70-105); Osmolality,Calculated 291 (280-300); Potassium 3.5 mEq/L (3.5-5.1); Sodium 141 mEq/L (136-145); eGFR For African Americans > 60 (> 60); eGFR For Non-African Americans > 60 (> 60)
[2020-08-23] MEDS: *HR* Heparin 5,000 UNIT/ML VIAL SQ SCH ×2 (05:56→18:30)
[2020-08-23] MEDS: Levothyroxine 25 MCG TABLET PO SCH (05:57)
[2020-08-23] MEDS: Aspirin Enteric Coated 325 MG Tablet PO SCH (08:44)
[2020-08-23] MEDS: Ranolazine 500 MG TAB.ER.12H PO SCH ×2 (08:44→21:17)
[2020-08-23] MEDS: Magnesium Oxide 400 MG TABLET PO SCH ×2 (08:44→21:18)
[2020-08-23] MEDS: Isosorbide MONOnitrate (24 HR) 30 MG TAB.ER.24H PO SCH (08:44)
[2020-08-23] MEDS: Methylphenidate HCl 10 MG TABLET PO SCH (08:47)
[2020-08-23] MEDS ORDERED: DilTIAZem CD (24hr) 120 MG CAP.ER.24H PO SCH (09:00)
[2020-08-23] MEDS ORDERED: NON-FORMULARY MEDICATION 1 EACH EACH (Ezetimibe 10 MG) PO SCH (09:00)
[2020-08-23] MEDS ORDERED: 0.9 % Sodium Chloride 500 ML IVC ONE (12:50)
[2020-08-24 01:58] LABS: Basophils % 0.4 %; Eosinophils # 0.1 K/mcL (0.0-0.6); Hematocrit 32.4 % (35.3-44.9); Immature Granulocytes % 0.4 % (0-4); Lymphocytes # 2.9 K/mcL (0.6-4.6); Lymphocytes % 31.2 %; Mean Corpuscular HGB Conc 30.9 g/dL (31.6-35.5); Mean Corpuscular Hemoglobin 29.2 pg (28.0-33.3); Mean Corpuscular Volume 94.7 fL (83.0-100.0); Mean Platelet Volume 9.4 fL (9.4-12.4); Monocytes # 0.8 K/mcL (0.0-1.3); Monocytes % 8.1 %; Neutrophils # 5.4 K/mcL (1.6-8.9); Platelet Count 169 K/mcL (140-400); Red Blood Count 3.42 M/mcL (3.82-4.97); Red Cell Distribution Width 14.8 % (11.5-14.5); Segmented Neutrophils % 58.9 %; White Blood Count 9.2 K/mcL (4.3-11.1)
[2020-08-24] MEDS: Methylphenidate HCl 10 MG TABLET PO SCH ×3 (02:14→20:17)
[2020-08-24 02:18] LABS: BUN/Creatinine Ratio 17 (6-26); Blood Urea Nitrogen 13 mg/dL (8-23); Calcium 8.5 mg/dL (8.6-10.3); Carbon Dioxide 18 mEq/L (23-29); Chloride 112 mEq/L (98-107); Glucose 62 mg/dL (70-105); Osmolality,Calculated 286 (280-300); Potassium 4.1 mEq/L (3.5-5.1); Sodium 139 mEq/L (136-145); eGFR For African Americans > 60 (> 60); eGFR For Non-African Americans > 60 (> 60)
[2020-08-24] MEDS: Levothyroxine 25 MCG TABLET PO SCH (05:42)
[2020-08-24] MEDS: *HR* Heparin 5,000 UNIT/ML VIAL SQ SCH ×2 (05:42→17:17)
[2020-08-24] MEDS: Isosorbide MONOnitrate (24 HR) 30 MG TAB.ER.24H PO SCH (07:37)
[2020-08-24] MEDS: Ranolazine 500 MG TAB.ER.12H PO SCH ×2 (07:37→20:16)
[2020-08-24] MEDS: Magnesium Oxide 400 MG TABLET PO SCH ×2 (07:38→20:16)
[2020-08-24] MEDS: Aspirin Enteric Coated 325 MG Tablet PO SCH (07:42)
[2020-08-24] MEDS: *HR* HYDROcodone/Acet 5/325 mg TABLET PO PRN ×3 (11:35→23:43)
[2020-08-24] MEDS: atenoloL 25 MG TABLET PO SCH (20:17)
[2020-08-25] MEDS: Levothyroxine 25 MCG TABLET PO SCH (05:49)
[2020-08-25] MEDS: *HR* Heparin 5,000 UNIT/ML VIAL SQ SCH ×2 (05:49→16:18)
[2020-08-25] MEDS: Isosorbide MONOnitrate (24 HR) 30 MG TAB.ER.24H PO SCH (08:33)
[2020-08-25] MEDS: Methylphenidate HCl 10 MG TABLET PO SCH ×2 (08:33→21:06)
[2020-08-25] MEDS: Ranolazine 500 MG TAB.ER.12H PO SCH ×2 (08:33→21:05)
[2020-08-25] MEDS: Magnesium Oxide 400 MG TABLET PO SCH ×2 (08:33→21:05)
[2020-08-25] MEDS: Aspirin Enteric Coated 325 MG Tablet PO SCH (08:33)
[2020-08-25] MEDS: *HR* HYDROcodone/Acet 5/325 mg TABLET PO PRN ×2 (12:27→21:05)
[2020-08-25] MEDS: atenoloL 25 MG TABLET PO SCH (21:06)
[2020-08-26 05:11] LABS: Hematocrit 32.9 % (35.3-44.9); Hemoglobin 10.2 g/dL (11.5-15.4); Mean Corpuscular Hemoglobin 29.9 pg (28.0-33.3); Mean Corpuscular Volume 96.5 fL (83.0-100.0); Mean Platelet Volume 9.5 fL (9.4-12.4); Platelet Count 161 K/mcL (140-400); Red Blood Count 3.41 M/mcL (3.82-4.97); Red Cell Distribution Width 14.8 % (11.5-14.5); White Blood Count 7.9 K/mcL (4.3-11.1)
[2020-08-26 05:21] LABS: BUN/Creatinine Ratio 13 (6-26); Blood Urea Nitrogen 10 mg/dL (8-23); Carbon Dioxide 21 mEq/L (23-29); Chloride 109 mEq/L (98-107); Glucose 72 mg/dL (70-105); Osmolality,Calculated 284 (280-300); Potassium 4.3 mEq/L (3.5-5.1); Sodium 138 mEq/L (136-145); eGFR For African Americans > 60 (> 60); eGFR For Non-African Americans > 60 (> 60)
[2020-08-26] MEDS: *HR* Heparin 5,000 UNIT/ML VIAL SQ SCH (05:35)
[2020-08-26] MEDS: Levothyroxine 25 MCG TABLET PO SCH (05:35)
[2020-08-26] MEDS: Isosorbide MONOnitrate (24 HR) 30 MG TAB.ER.24H PO SCH (09:51)
[2020-08-26] MEDS: Magnesium Oxide 400 MG TABLET PO SCH (09:51)
[2020-08-26] MEDS: Ranolazine 500 MG TAB.ER.12H PO SCH (09:51)
[2020-08-26] MEDS: Aspirin Enteric Coated 325 MG Tablet PO SCH (09:51)
[2020-08-26] MEDS: *HR* HYDROcodone/Acet 5/325 mg TABLET PO PRN (09:52)
[2020-08-26] MEDS: Methylphenidate HCl 10 MG TABLET PO SCH (09:52)
[2020-08-26 12:15] VITALS: BP 119/65
== END 2020-08-26 15:22 ==
LOC: 3BNU 13:46 → EMEROOARM 13:46 → SUATTDRO 16:35 → 3BNU 17:32
PROVIDERS: ADMIT Pharmacist; ATTEND Family Medicine

== ENCOUNTER 2021-04-14 03:13 | Observation (INO) ==
[2021-04-14] MEDS ORDERED: Nitroglycerin 0.4 MG TAB.SUBL SL PRN (03:26)
[2021-04-14 03:55] LABS: Basophils % 0.4 %; Eosinophils # 0.2 K/mcL (0.0-0.6); Eosinophils % 2.5 %; Hematocrit 33.3 % (35.3-44.9); Hemoglobin 10.1 g/dL (11.5-15.4); Immature Granulocytes % 0.5 % (0-4); Lymphocytes # 2.3 K/mcL (0.6-4.6); Lymphocytes % 24.5 %; Mean Corpuscular HGB Conc 30.3 g/dL (31.6-35.5); Mean Corpuscular Hemoglobin 28.9 pg (28.0-33.3); Mean Corpuscular Volume 95.1 fL (83.0-100.0); Mean Platelet Volume 9.5 fL (9.4-12.4); Monocytes # 0.8 K/mcL (0.0-1.3); Monocytes % 8.6 %; Neutrophils # 5.9 K/mcL (1.6-8.9); Platelet Count 177 K/mcL (140-400); Red Cell Distribution Width 13.8 % (11.5-14.5); Segmented Neutrophils % 63.5 %; White Blood Count 9.4 K/mcL (4.3-11.1)
[2021-04-14 04:19] LABS: BUN/Creatinine Ratio 18 (6-26); Blood Urea Nitrogen 25 mg/dL (8-23); Calcium 8.6 mg/dL (8.6-10.3); Carbon Dioxide 28 mEq/L (23-29); Chloride 104 mEq/L (98-107); Glucose 112 mg/dL (70-105); Osmolality,Calculated 293 (280-300); Potassium 4.5 mEq/L (3.5-5.1); Sodium 139 mEq/L (136-145); Troponin I < 0.03 ng/mL (< 0.04); eGFR For African Americans 45 (> 60); eGFR For Non-African Americans 37 (> 60)
[2021-04-14 04:28] LABS: INR 1.4; Prothrombin Time 16.2 Seconds (9.4-12.1)
[2021-04-14] MEDS ORDERED: Naloxone 0.4 MG/ML INJ IVP PRN (07:45)
[2021-04-14] MEDS ORDERED: Perflutren Lipid Microsphere 1.3 ML in 0.9 % Sodium Chloride 8.7 ML IVP PRN (10:03)
[2021-04-14] MEDS: 0.9 % Sodium Chloride 1,000 ML IVC SCH ×2 (10:48→18:57)
[2021-04-15 02:08] LABS: Basophils % 0.5 %; Eosinophils # 0.2 K/mcL (0.0-0.6); Hematocrit 32.7 % (35.3-44.9); Hemoglobin 9.9 g/dL (11.5-15.4); Immature Granulocytes % 0.7 % (0-4); Lymphocytes # 2.6 K/mcL (0.6-4.6); Lymphocytes % 28.8 %; Mean Corpuscular HGB Conc 30.3 g/dL (31.6-35.5); Mean Corpuscular Hemoglobin 28.4 pg (28.0-33.3); Mean Platelet Volume 9.2 fL (9.4-12.4); Monocytes # 0.7 K/mcL (0.0-1.3); Monocytes % 8.2 %; Neutrophils # 5.3 K/mcL (1.6-8.9); Platelet Count 149 K/mcL (140-400); Red Blood Count 3.48 M/mcL (3.82-4.97); Red Cell Distribution Width 13.7 % (11.5-14.5); Segmented Neutrophils % 59.8 %; White Blood Count 8.9 K/mcL (4.3-11.1)
[2021-04-15 02:31] LABS: BUN/Creatinine Ratio 18 (6-26); Blood Urea Nitrogen 17 mg/dL (8-23); Calcium 7.9 mg/dL (8.6-10.3); Carbon Dioxide 24 mEq/L (23-29); Chloride 110 mEq/L (98-107); Glucose 88 mg/dL (70-105); Osmolality,Calculated 291 (280-300); Potassium 3.9 mEq/L (3.5-5.1); Sodium 140 mEq/L (136-145); eGFR For African Americans > 60 (> 60); eGFR For Non-African Americans 59 (> 60)
[2021-04-15] MEDS: 0.9 % Sodium Chloride 1,000 ML IVC SCH ×2 (03:20→11:53)
[2021-04-15] MEDS ORDERED: *HR* Enoxaparin 40 MG/0.4 ML SYRINGE SQ SCH (06:00)
[2021-04-15] MEDS ORDERED: Nitroglycerin 0.4 MG TAB.SUBL SL PRN (11:00)
[2021-04-15 15:20] VITALS: BP 146/67
[2021-04-15] MEDS ORDERED: atenoloL 25 MG TABLET PO SCH (21:00)
[2021-04-15] MEDS ORDERED: Magnesium Oxide 400 MG TABLET PO SCH (21:00)
[2021-04-15] MEDS ORDERED: Mirtazapine 15 MG TABLET PO SCH (21:00)
[2021-04-15] MEDS ORDERED: traZODone 50 MG TABLET PO PRN (21:00)
[2021-04-15] MEDS ORDERED: Ranolazine 500 MG TAB.ER.12H PO SCH (21:00)
[2021-04-16] MEDS ORDERED: DilTIAZem CD (24hr) 120 MG CAP.ER.24H PO SCH (09:00)
[2021-04-16] MEDS ORDERED: Cholecalciferol (D-3) 1,000 UNIT (25MCG) TABLET PO SCH (09:00)
[2021-04-16] MEDS ORDERED: Aspirin Enteric Coated 325 MG Tablet PO SCH (09:00)
[2021-04-16] MEDS ORDERED: Isosorbide MONOnitrate (24 HR) 30 MG TAB.ER.24H PO SCH (09:00)
[2021-04-16] MEDS ORDERED: Torsemide 20 MG TABLET PO SCH (09:00)
== END 2021-04-15 18:01 | disposition home health service (06) ==
LOC: 2ANU 03:13 → EMEROOARM 03:13 → SUATTDRO 05:38 → 2ANU 06:13
PROVIDERS: ADMIT Family Medicine; ATTEND Internal Medicine